=== PATIENT | female | born 1950 | race Caucasian/White ===

== ENCOUNTER → 2016-12-09 | Outpatient (CLI) | payer OTHER | LOC: FIMAGING 15:39 | PROVIDERS: ATTEND Family Medicine | DX: I51.7 Cardiomegaly (principal); E21.3 Hyperparathyroidism, unspecified ==

== ENCOUNTER → 2016-12-28 | Outpatient (CLI) | payer OTHER | LOC: CIMAGING 12:00 | DX: Z12.31 Encounter for screening mammogram for malignant neoplasm of breast (principal) | CPT/HCPCS: G0202 ==

== ENCOUNTER 2017-01-29 09:37 | Observation (INO) | payer OTHER ==
--- NOTE | 2017-01-29 09:47 | CPEKG ---
Heart Rate: 50 RR Interval: 1200 P-R Interval: 200 QRSD Interval: 106 QT Interval: 468 QTC Interval: 427 P Moffat: 27 QRS Moffat: 88 T Wave Moffat: -1 EKG Severity - OTHERWISE NORMAL ECG - EKG Impression: SINUS RHYTHM EKG Impression: MINIMAL ST DEPRESSION, INFERIOR LEADS Electronically Signed By: Miracle Wells 29-Jan-2017 15:27:48
[2017-01-29 10:22] LABS: % IMMATURE GRANULYOCYTES 0.6 % (0.0-1.1); ABSOLUTE IMMATURE GRANULOCYTES 0.03 10^3/uL (0.00-0.10); ADD DIFF? NO; ADD MORPH? NO; ADD SCAN? NO; ATYPICAL LYMPHOCYTE FLAG 20 (0-99); FRAGMENT RBC FLAG 0 (0-99); HEMATOCRIT 43.3 % (38.0-47.0); HEMOGLOBIN 14.7 g/dL (12.6-16.3); LEFT SHIFT FLG 0 (0-99); LIPEMIA HEMOLYSIS FLAG 90 (0-99); MEAN CELL HEMOGLOBIN 29.1 pg (27.9-34.1); MEAN CELL HEMOGLOBIN CONCENTR. 33.9 g/dL (32.4-36.7); MEAN CELL VOLUME 85.6 fL (81.5-99.8); PLATELET CLUMPS FLAG 0 (0-99); PLATELET COUNT 288 10^3/uL (150-400); RED BLOOD CELL COUNT 5.06 10^6/uL (4.18-5.33)
--- NOTE | 2017-01-29 10:34 | EDPHY ---
H & P Stated Complaint: Dizzy and syncope this am. Seen by PCP yesterday for same Time Seen by Provider: 01/29/17 10:07 HPI/ROS: CHIEF COMPLAINT: dizziness, near-syncope HISTORY OF PRESENT ILLNESS: 66-year-old female arrives via ambulance complaining of near syncopal episode and dizziness this morning. She describes several weeks of back pain which occurred intermittently, had an outpatient chest x-ray and an echocardiography performed [place] her yesterday showing mitral regurgitation. She received a phone call from her PCP last evening indicated that she necessitated transesophageal echocardiography and cardiac catheterizations. This morning while not performing exertional activity at home , standing, she felt sudden onset of dizziness, a "heartburn like sensation", fell to the floor. Did not have a syncopal episode the fell near syncopal. No incontinence. No head injury. 911 was subsequently called. PRIMARY CARE PROVIDER: Dr. Anum Olmstead REVIEW OF SYSTEMS: A ten point review of systems was performed and is negative with the exception of the items mentioned in the HPI PAST MEDICAL & SURGICAL HISTORY: no cardiac history SOCIAL HISTORY: nonsmoker. No drug use. FAMILY HISTORY:sister of [place] at age 40 PHYSICAL EXAM (Prior to examination, patient consented to physical exam, hands were washed and my usual and customary physical exam procedures followed) 1) GENERAL: Well-developed, well-nourished, alert and oriented. Appears to be in no acute distress. 2) HEAD: Normocephalic, atraumatic 3) HEENT: Pupils equal, round, reactive to light bilaterally. Sclera anicteric. 4) NECK: Full range of motion, no bruit. 5) LUNGS: Clear auscultation bilaterally, no wheezes, no rhonchi, no retractions. 6) HEART: Regular rate and rhythm, no murmur, no heave, no gallop. 7) ABDOMEN: No guarding, no rebound, no focal tenderness, negative McBurney's, negative Hernandez's, negative Rovsing's, negative peritoneal sign, 8) MUSCULOSKELETAL: Moving all extremities, no focal areas of tenderness, no obvious trauma. No peripheral edema or discoloration. 9) BACK: No CVA tenderness, no midline vertebral tenderness, no fluctuance, no step-off, no obvious trauma, no visual or palpable abnormality. 10) SKIN: No rash, no petechiae. 11) NEURO: Awake, alert, and oriented to person, place and time. Answers questions appropriately. There were no obvious focal neurologic abnormalities. No cerebellar dysfunction. Normal steady gait. Upper and lower extremities bilaterally with strength 5 / 5, reflexes 2+. DIFFERENTIAL DIAGNOSIS: In no particular order, including but not limited to myocardial ischemia, pulmonary embolus, chest wall pain, pleural inflammation and pulmonary infectious causes. - Personal History Current Tetanus/Diphtheria Vaccine: Yes - Medical/Surgical History Hx Asthma: No Hx Chronic Respiratory Disease: No Hx Diabetes: No Hx Cardiac Disease: No Hx Renal Disease: No Hx Cirrhosis: No Hx Alcoholism: No Hx HIV/AIDS: No Hx Splenectomy or Spleen Trauma: No Other PMH: foot surgery for arthritis - Social History Smoking Status: Former smoker Constitutional: Initial Vital Signs Temperature (C) 36.4 C 01/29/17 09:39 Heart Rate 58 L 01/29/17 09:39 Respiratory Rate 16 01/29/17 09:39 Blood Pressure 123/66 H 01/29/17 09:39 O2 Sat (%) 92 01/29/17 09:39 O2 Delivery Mode Room Air Allergies/Adverse Reactions: sulfamethoxazole [From Bactrim] Allergy (Verified 01/29/17 12:49) Other-Enter Comments trimethoprim [From Bactrim] Allergy (Verified 01/29/17 12:49) Other-Enter Comments Home Medications: Medication Instructions Recorded Betamethasone Jade 0.1% 1 nnamdi TP BID 01/29/17 [Betamethasone Jade 0.1% (*)] Cholecalciferol Vit D3 [Vitamin D3 1,000 units PO DAILY 01/29/17 (*)] Clindamycin Phosphate [Clindamycin 1 nnamdi TP BID 01/29/17 Top Solution] Herbals/Supplements -Info Only 1 ea PO DAILY 01/29/17 buPROPion XL [Wellbutrin Xl] 150 mg PO DAILY 01/29/17 Medical Decision Making - Diagnostics Imaging Results: Imaging Impressions Chest X-Ray 01/29/17 10:17 Impression: No acute abnormality, or substantial change from 12/09/2016. ED Course/Re-evaluation: 10:34 a.m.: Care and management in consultation with secondary supervising physician Dr Wells who independently evaluated patient. Medical records reviewed via [employer] including the echocardiography report. We recommended admission for further evaluation of her near syncope and mitral regurgitation findings. Doubt NE. Doubt PE. 11:24 a.m.: Phone consultation with hospitalist Silvia, admit to Dr. Cross PCU. Departure - Departure Disposition: [facility] Inpatient Acute Clinical Impression: Near syncope Mitral valve regurgitation Qualifiers: Cardiac valve disease etiology: etiology unspecified Qualified Code(s): I34.0 - Nonrheumatic mitral (valve) insufficiency Condition: Fair
[2017-01-29 10:37] LABS: ANION GAP 11 mEq/L (8-16); CALCIUM 10.8 mg/dL (8.5-10.4); CARBON DIOXIDE 23 mEq/l (22-31); CHLORIDE 106 mEq/L (97-110); CREATININE 0.8 mg/dL (0.6-1.0); GLOMERULAR FILTRATION RATE > 60; GLUCOSE 93 mg/dL (70-100); POTASSIUM 4.3 mEq/L (3.5-5.2); SODIUM 140 mEq/L (134-144)
[2017-01-29 10:48] LABS: INR 1.02 (0.83-1.16); PROTIME(PATIENT) 13.3 SEC (12.0-15.0); TROPONIN I < 0.012 ng/mL (0-0.034)
[2017-01-29 10:49] LABS: APTT 42.8 SEC (23.0-38.0)
[2017-01-29] MEDS ORDERED: ACETAMINOPHEN 325 MG TAB PO PRN (15:33)
[2017-01-29] MEDS ORDERED: PROMETHAZINE HCL 25 MG TAB PO PRN (15:33)
--- NOTE | 2017-01-29 15:41 | PDGENHP ---
History and Physical - Chief Complaint Acute near syncope - History of Present Illness PCP: Dr. Anum Olmstead HPI: 66-year-old female presenting with acute near syncope characterized as a dizziness with associated nausea and vomiting, onset of symptoms around 9:00 a.m. 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 Duration was several minutes, and the dizziness was exacerbated by attempting to stand, resulting in the patient following and reportedly nearly losing consciousness. Patient denies overt LOC, denies any incontinence, denies any chest pain or palpitations. She reports that she had otherwise been eating and drinking normally and she had been feeling well on the day prior to this presentation. She reports that her physical activity has been somewhat limited secondary to recent knee surgery and rehab, but she has been able to ambulate up stairs without any chest pain or significant reduction in respiratory capacity. History Information - Allergies/Home Medication List Allergies/Adverse Reactions: sulfamethoxazole [From Bactrim] Allergy (Verified 01/29/17 12:49) Other-Enter Comments trimethoprim [From Bactrim] Allergy (Verified 01/29/17 12:49) Other-Enter Comments Home Medications: Betamethasone Jade 0.1% [Betamethasone Jade 0.1% (*)] 1 nnamdi TP BID 01/29/17 [Last Taken 01/28/17] Cholecalciferol Vit D3 [Vitamin D3 (*)] 1,000 units PO DAILY 01/29/17 [Last Taken Unknown] Clindamycin Phosphate [Clindamycin Top Solution] 1 nnamdi TP BID 01/29/17 [Last Taken 01/28/17] Herbals/Supplements -Info Only 1 ea PO DAILY 01/29/17 [Last Taken Unknown] buPROPion XL [Wellbutrin Xl] 150 mg PO DAILY 01/29/17 [Last Taken 01/29/17] I have personally reviewed and updated: family history, medical history, social history, surgical history - Past Medical History Additional medical history: Parathyroid tumor, 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 Chronic dizziness for which she takes [id number] Antivert - Surgical History Additional surgical history: Recent knee surgery - Family History Additional family history: Sister with sudden cardiac at age 49, no family history of CVA - Social History Smoking Status: Former smoker Alcohol Use: Occasionally Drug Use: None Additional social history: Normally independent in her ADLs Review of Systems ROS: 10pt was reviewed & negative except for what was stated in HPI & below Constitutional: Denies: weakness Gastrointestinal: Reports: vomitting, nausea Neurological: Reports: other (Dizziness and near-syncope) Physical Exam Temp Pulse Resp BP Pulse Ox 36.9 C 57 L 16 117/58 L 94 01/29/17 12:22 01/29/17 12:22 01/29/17 12:22 01/29/17 12:22 01/29/17 12:22 O2 (L/minute) 2 Constitutional: no apparent distress, appears nourished, not in pain Eyes: PERRL, anicteric sclera, EOMI Ears, Nose, Mouth, Throat: moist mucous membranes, hearing normal, ears appear normal, no oral mucosal ulcers Cardiovascular: systolic murmur (3/6 systolic murmur at the apex with radiation into the axilla, 106 systolic murmur at the sternum), No irregularly irregular, No carotid bruit, No tachycardia, No edema Respiratory: no respiratory distress, no rales or rhonchi, clear to auscultation Gastrointestinal: normoactive bowel sounds, soft, non-tender abdomen, no palpable masses Skin: warm, normal color, no rashes or abrasions, no fluctuance, no induration, No mottled Neurologic: AAOx3, sensation intact bilaterally, CN II-XII Intact, No weakness Psychiatric: interacting appropriately, not anxious, not encephalopathic, thought process linear Lab Data & Imaging Review 01/29/17 Unknown 01/29/17 Unknown WBC 5.37 10^3/uL (3.80-9.50) 01/29/17 Unknown RBC 5.06 10^6/uL (4.18-5.33) 01/29/17 Unknown Hgb 14.7 g/dL (12.6-16.3) 01/29/17 Unknown Hct 43.3 % (38.0-47.0) 01/29/17 Unknown MCV 85.6 fL (81.5-99.8) 01/29/17 Unknown MCH 29.1 pg (27.9-34.1) 01/29/17 Unknown MCHC 33.9 g/dL (32.4-36.7) 01/29/17 Unknown RDW 13.0 % (11.5-15.2) 01/29/17 Unknown Plt Count 288 10^3/uL (150-400) 01/29/17 Unknown MPV 10.0 fL (8.7-11.7) 01/29/17 Unknown Neut % (Auto) 67.7 % (39.3-74.2) 01/29/17 Unknown Lymph % (Auto) 22.3 % (15.0-45.0) 01/29/17 Unknown Rains % (Auto) 6.7 % (4.5-13.0) 01/29/17 Unknown Eos % (Auto) 2.0 % (0.6-7.6) 01/29/17 Unknown Baso % (Auto) 0.7 % (0.3-1.7) 01/29/17 Unknown Nucleat RBC Rel Count 0.0 % (0.0-0.2) 01/29/17 Unknown Absolute Neuts (auto) 3.63 10^3/uL (1.70-6.50) 01/29/17 Unknown Absolute Lymphs (auto) 1.20 10^3/uL (1.00-3.00) 01/29/17 Unknown Absolute Monos (auto) 0.36 10^3/uL (0.30-0.80) 01/29/17 Unknown Absolute Eos (auto) 0.11 10^3/uL (0.03-0.40) 01/29/17 Unknown Absolute Basos (auto) 0.04 10^3/uL (0.02-0.10) 01/29/17 Unknown Absolute Nucleated RBC 0.00 10^3/uL (0-0.01) 01/29/17 Unknown Immature Gran % 0.6 % (0.0-1.1) 01/29/17 Unknown Immature Gran # 0.03 10^3/uL (0.00-0.10) 01/29/17 Unknown PT 13.3 SEC (12.0-15.0) 01/29/17 Unknown INR 1.02 (0.83-1.16) 01/29/17 Unknown APTT 42.8 SEC (23.0-38.0) H 01/29/17 Unknown D-Dimer < 0.27 ug/mLFEU (0.00-0.50) 01/29/17 Unknown Sodium 140 mEq/L (134-144) 01/29/17 Unknown Potassium 4.3 mEq/L (3.5-5.2) 01/29/17 Unknown Chloride 106 mEq/L (97-110) 01/29/17 Unknown Carbon Dioxide 23 mEq/l (22-31) 01/29/17 Unknown Anion Gap 11 mEq/L (8-16) 01/29/17 Unknown BUN 15 mg/dL (7-23) 01/29/17 Unknown Creatinine 0.8 mg/dL (0.6-1.0) 01/29/17 Unknown Estimated GFR > 60 01/29/17 Unknown Glucose 93 mg/dL (70-100) 01/29/17 Unknown Calcium 10.8 mg/dL (8.5-10.4) H 01/29/17 Unknown Phosphorus 3.5 mg/dL (2.5-4.5) 01/29/17 Unknown Troponin I < 0.012 ng/mL (0-0.034) 01/29/17 Unknown Visualized and Interpreted Chest x-ray results: Yes Chest X-Ray results: no infiltrate Visualized and Interpreted EKG results: Yes EKG Interpretation: Positive for: other (Inferior mild ST depressions) Assessment & Plan Assessment: 66-year-old female presents with acute near syncope in the setting of recently diagnosed mitral regurgitation Plan: 1. Near syncope. Acute, new problem this provider, further workup indicated. Potential etiologies include inner ear irritation, potentially a BPPV versus vertebrobasilar insufficiency versus cardiac arrhythmia versus cardiac valvular abnormality. -discussed with Katie Alexander, cardiology consult, Cardiology will consulted for further workup of valvular abnormality -get carotid/vertebral artery ultrasounds -monitor on telemetry -get orthostatic vital signs 2. Mitral regurgitation. Per report, significant on echocardiogram from 01/28, primary care provider contacted this patient and told her that a YOSELIN/right and left heart catheterization would be arranged via [facility] -order outside records including echocardiogram from [facility] 01/28 -will make NPO after midnight for probable yoselin most likely required to gauge flow gradient over mitral valve and determine whether patient should undergo surgery -patient does not appear overtly volume overloaded, seems to be asymptomatic, could be potentiating arrhythmia causing the above Diet. Regular, NPO after midnight Prophylaxis. Low risk patient, SCDs Code. Full Disposition. Anticipated discharge is 01/30/2017, pending further workup as outlined above.
[2017-01-29] MEDS ORDERED: NITROGLYCERIN 0.4 MG BTL SL PRN (20:19)
[2017-01-29] MEDS ORDERED: TEMAZEPAM 15 MG CAP PO PRN (20:19)
[2017-01-29] MEDS ORDERED: DIAZEPAM 5 MG TAB PO ONE (20:19)
[2017-01-29] MEDS ORDERED: ASPIRIN EC 325 MG TAB PO ONE (20:19)
--- NOTE | 2017-01-29 20:28 | PDCARCONS ---
Cardiology Consult Reason for Consult: Mitral regurgitation Chief Complaint: Dizzy with decreased exercise tolerance Requesting Physician: Tay History of Present Illness: 66 yo female, Hx. of heart murmur over many years s/p Echo yesterday revealing severe MR with a one day history of vertigo associated with nausea and vomiting. Her yunger sister recently had a CT and , Her grandmother simarily and she became very concerned it was going to happen to her. She activated 911. She did not have syncope. chest pain, PND, orthopnea. She has become more and more sedentary for no particular reason over the last several years. Ambulatory Orders Betamethasone Jade 0.1% [Betamethasone Jade 0.1% (*)] 1 nnamdi TP BID 01/29/17 Cholecalciferol Vit D3 [Vitamin D3 (*)] 1,000 units PO DAILY 01/29/17 Clindamycin Phosphate [Clindamycin Top Solution] 1 nnamdi TP BID 01/29/17 Herbals/Supplements -Info Only 1 ea PO DAILY 01/29/17 buPROPion XL [Wellbutrin 150mg XL] 150 mg PO DAILY 01/29/17 History Information - Allergies/Home Medication List Allergies/Adverse Reactions: sulfamethoxazole [From Bactrim] Allergy (Verified 01/29/17 12:49) Other-Enter Comments trimethoprim [From Bactrim] Allergy (Verified 01/29/17 12:49) Other-Enter Comments Home Medications: Betamethasone Jade 0.1% [Betamethasone Jade 0.1% (*)] 1 nnamdi TP BID 01/29/17 [Last Taken 01/28/17] Cholecalciferol Vit D3 [Vitamin D3 (*)] 1,000 units PO DAILY 01/29/17 [Last Taken Unknown] Clindamycin Phosphate [Clindamycin Top Solution] 1 nnamdi TP BID 01/29/17 [Last Taken 01/28/17] Herbals/Supplements -Info Only 1 ea PO DAILY 01/29/17 [Last Taken Unknown] buPROPion XL [Wellbutrin Xl] 150 mg PO DAILY 01/29/17 [Last Taken 01/29/17] I have personally reviewed and updated: family history, medical history, social history, surgical history - Surgical History Additional surgical history: Tonsillectomy - Family History Positive for: CAD, female first degree with premature CAD - Social History Smoking Status: Former smoker Alcohol Use: Occasionally Drug Use: None Cardiac History - Cardiac History Cardiac Risk Factors: family history of premature CAD Physical Exam Temp Pulse Resp BP Pulse Ox 36.9 C 68 16 96/50 L 91 L 01/29/17 19:40 01/29/17 19:40 01/29/17 19:40 01/29/17 19:40 01/29/17 19:40 O2 (L/minute) 2 Constitutional: No no apparent distress Eyes: PERRL, EOMI, No anicteric sclera, No icteric sclera Ears, Nose, Mouth, Throat: moist mucous membranes Cardiovascular: regular rate and rhythym, systolic murmur, No JVD, No edema Peripheral Pulses: 1+: carotid (R), carotid (L), femoral (R), femoral (L), dorsalis-pedis (R), dorsalis-pedis (L) Respiratory: no respiratory distress, no rales or rhonchi, clear to auscultation Gastrointestinal: normoactive bowel sounds, soft, non-tender abdomen, no palpable masses Genitourinary: no bladder fullness Skin: warm, normal color, no rashes or abrasions Musculoskeletal: full muscle strength Neurologic: AAOx3, No weakness Psychiatric: interacting appropriately, not anxious Lymph, Heme, Immunologic: no cervical LAD, no supraclavicular LAD Lab and Imaging 01/29/17 Unknown 01/29/17 Unknown WBC 5.37 10^3/uL (3.80-9.50) 01/29/17 Unknown RBC 5.06 10^6/uL (4.18-5.33) 01/29/17 Unknown Hgb 14.7 g/dL (12.6-16.3) 01/29/17 Unknown Hct 43.3 % (38.0-47.0) 01/29/17 Unknown MCV 85.6 fL (81.5-99.8) 01/29/17 Unknown MCH 29.1 pg (27.9-34.1) 01/29/17 Unknown MCHC 33.9 g/dL (32.4-36.7) 01/29/17 Unknown RDW 13.0 % (11.5-15.2) 01/29/17 Unknown Plt Count 288 10^3/uL (150-400) 01/29/17 Unknown MPV 10.0 fL (8.7-11.7) 01/29/17 Unknown Neut % (Auto) 67.7 % (39.3-74.2) 01/29/17 Unknown Lymph % (Auto) 22.3 % (15.0-45.0) 01/29/17 Unknown Ramsey % (Auto) 6.7 % (4.5-13.0) 01/29/17 Unknown Eos % (Auto) 2.0 % (0.6-7.6) 01/29/17 Unknown Baso % (Auto) 0.7 % (0.3-1.7) 01/29/17 Unknown Nucleat RBC Rel Count 0.0 % (0.0-0.2) 01/29/17 Unknown Absolute Neuts (auto) 3.63 10^3/uL (1.70-6.50) 01/29/17 Unknown Absolute Lymphs (auto) 1.20 10^3/uL (1.00-3.00) 01/29/17 Unknown Absolute Monos (auto) 0.36 10^3/uL (0.30-0.80) 01/29/17 Unknown Absolute Eos (auto) 0.11 10^3/uL (0.03-0.40) 01/29/17 Unknown Absolute Basos (auto) 0.04 10^3/uL (0.02-0.10) 01/29/17 Unknown Absolute Nucleated RBC 0.00 10^3/uL (0-0.01) 01/29/17 Unknown Immature Gran % 0.6 % (0.0-1.1) 01/29/17 Unknown Immature Gran # 0.03 10^3/uL (0.00-0.10) 01/29/17 Unknown PT 13.3 SEC (12.0-15.0) 01/29/17 Unknown INR 1.02 (0.83-1.16) 01/29/17 Unknown APTT 42.8 SEC (23.0-38.0) H 01/29/17 Unknown D-Dimer < 0.27 ug/mLFEU (0.00-0.50) 01/29/17 Unknown Sodium 140 mEq/L (134-144) 01/29/17 Unknown Potassium 4.3 mEq/L (3.5-5.2) 01/29/17 Unknown Chloride 106 mEq/L (97-110) 01/29/17 Unknown Carbon Dioxide 23 mEq/l (22-31) 01/29/17 Unknown Anion Gap 11 mEq/L (8-16) 01/29/17 Unknown BUN 15 mg/dL (7-23) 01/29/17 Unknown Creatinine 0.8 mg/dL (0.6-1.0) 01/29/17 Unknown Estimated GFR > 60 01/29/17 Unknown Glucose 93 mg/dL (70-100) 01/29/17 Unknown Calcium 10.8 mg/dL (8.5-10.4) H 01/29/17 Unknown Phosphorus 3.5 mg/dL (2.5-4.5) 01/29/17 Unknown Troponin I < 0.012 ng/mL (0-0.034) 01/29/17 Unknown Visualized and Interpreted Chest x-ray results: Yes Chest X-ray Interpretation: other (No cardiomegaly. Normal) EKG additional interpertation: SR with inferior non specific ST-T changes. A/P Assessment: 1. Acute vertigo associated with nausea and vomiting 2. Severe mitral regurgitation without clear evidence f heart failure, but, slow and steady decline in functional activities. 3. Strong family history of early coronary artery disease with recent loss of sister and abnormal baseline ecg with inferior st-t changes and normal troponin. Plan: 1. Metabolic assment for CHF wth BNP 2. SAADIA right and left heart cath to determine surgical approach needed. Discussed timing of these tests and alternatives including watchful waiting. She understands the risks and benefits. Will proceed tomorrow. am. Review of Systems - Review of Systems Constitutional: denies: chills, fever EENTM: other (vertigo) Respiratory: no symptoms reported Cardiac: no symptoms reported Gastrointestinal/Abdominal: nausea, vomiting. denies: diarrhea Genitourinary: no symptoms Musculoskelatal: no symptoms Skin: no symptoms Neurological: dizziness Hematologic/Lymphatic: no symptoms reported Immunologic/allergic: denies: no symptoms reported
[2017-01-29] MEDS ORDERED: BETAMETHASONE VAL 0.1% 15 GM CREAM TP SCH (21:00)
[2017-01-29] MEDS ORDERED: CLINDAMYCIN 1% 60 ML LOTION TP SCH (21:00)
[2017-01-30] MEDS ORDERED: KETOROLAC 30 MG/1 ML SDV IVP PRN (03:28)
[2017-01-30 04:43] LABS: % IMMATURE GRANULYOCYTES 0.5 % (0.0-1.1); ABSOLUTE IMMATURE GRANULOCYTES 0.03 10^3/uL (0.00-0.10); ADD DIFF? NO; ADD MORPH? NO; ADD SCAN? NO; ATYPICAL LYMPHOCYTE FLAG 10 (0-99); FRAGMENT RBC FLAG 0 (0-99); HEMATOCRIT 42.6 % (38.0-47.0); HEMOGLOBIN 14.2 g/dL (12.6-16.3); LEFT SHIFT FLG 0 (0-99); LIPEMIA HEMOLYSIS FLAG 80 (0-99); MEAN CELL HEMOGLOBIN 29.2 pg (27.9-34.1); MEAN CELL HEMOGLOBIN CONCENTR. 33.3 g/dL (32.4-36.7); MEAN CELL VOLUME 87.7 fL (81.5-99.8); MEAN PLATELET VOLUME 9.6 fL (8.7-11.7); PLATELET CLUMPS FLAG 10 (0-99); PLATELET COUNT 258 10^3/uL (150-400); RED BLOOD CELL COUNT 4.86 10^6/uL (4.18-5.33)
[2017-01-30 04:47] LABS: ALANINE AMINOTRANSFERASE 46 IU/L (9-52); ALBUMIN 4.1 g/dL (3.5-5.0); ALKALINE PHOSPHATASE 85 IU/L (38-126); ANION GAP 8 mEq/L (8-16); ASPARTATE AMINOTRANSFERASE 28 IU/L (14-46); BILIRUBIN,TOTAL 0.8 mg/dL (0.1-1.4); CALCIUM 10.3 mg/dL (8.5-10.4); CARBON DIOXIDE 24 mEq/l (22-31); CHLORIDE 107 mEq/L (97-110); CREATININE 0.8 mg/dL (0.6-1.0); GLOMERULAR FILTRATION RATE > 60; GLUCOSE 110 mg/dL (70-100); MAGNESIUM 2.3 mg/dL (1.6-2.3); POTASSIUM 4.3 mEq/L (3.5-5.2); SODIUM 139 mEq/L (134-144); TOTAL PROTEIN 6.1 g/dL (6.3-8.2)
[2017-01-30 04:57] LABS: INR 1.05 (0.83-1.16); PROTIME(PATIENT) 13.6 SEC (12.0-15.0)
[2017-01-30 04:58] LABS: APTT 51.4 SEC (23.0-38.0)
[2017-01-30] MEDS ORDERED: DIAZEPAM 5 MG TAB PO ONE (05:00)
[2017-01-30] MEDS ORDERED: ASPIRIN EC 325 MG TAB PO ONE (05:00)
[2017-01-30] MEDS ORDERED: ASPIRIN 325 MG TAB ONE (07:59)
[2017-01-30] MEDS ORDERED: DIAZEPAM 5 MG TAB ONE (07:59)
[2017-01-30] MEDS ORDERED: LIDOCAINE 1% 30 ML SDV ONE (08:18)
[2017-01-30] MEDS ORDERED: HEPARIN 10,000 UNIT/10 ML MDV ONE (08:19)
[2017-01-30] MEDS ORDERED: fentaNYL 100 MCG/2 ML INJ ONE ×2 (08:19→09:25)
[2017-01-30] MEDS ORDERED: MIDAZOLAM 2 MG/2 ML VIAL ONE ×2 (08:19→09:25)
[2017-01-30] MEDS ORDERED: IOPAMIDOL (ISOVUE-370) 150 ML BTL IV ONE ×2 (08:20)
[2017-01-30] MEDS ORDERED: VERAPAMIL 5 MG/2 ML VIAL ONE (08:20)
[2017-01-30] MEDS ORDERED: buPROPion XL 150 MG TAB PO SCH (09:00)
[2017-01-30] MEDS ORDERED: CHOLECALCIFEROL VIT D3 1,000 UNITS TAB PO SCH (09:00)
[2017-01-30] MEDS ORDERED: Herbals/Supplements -Info Only PO SCH (09:00)
[2017-01-30] MEDS ORDERED: ONDANSETRON 4 MG/2 ML VIAL IVP PRN (10:26)
[2017-01-30] MEDS ORDERED: ATROPINE SULFATE 1 MG/10 ML SYR IVP PRN (10:26)
--- NOTE | 2017-01-30 10:30 | PDDXCAT ---
Diagnostic Cath Note - . Date: 01/30/17 Cushion Assembler: Quinten Indication: other (Class 1 dyspnea on exertion, severe mitral regurgitation) - Procedure Access: right groin Procedure: left heart catheterization, coronary angiography, left ventriculogram , right heart catheterization - Materials Left Heart Cath size: 5F Left Heart Cath materials: standard multipack (JL4, JR4, pigtail) Right Heart Cath size: 7F Right Heart Cath materials: PWP catheter - Findings-Left Heart Catheterization LM: Normal LAD: Normal LCX: Co dominant: Normal RCA: Co dominant: Normal EDP: 15 mm of mercury LVEF: 65% with 3+ mitral regurgitation Wall motion: Normal - Findings-Right Heart Catheterization RA: 10 mm of mercury RV: 42/11 mm of mercury PA: 45/18 mm of mercury PAOP: 15 mm of mercury Complications: None Estimated blood loss: <50ml Closure method: Angioseal Assessment: 1. Angiographically normal coronary arteries. 2. Normal left ventricular systolic function with 3+ mitral regurgitation. 3. Borderline pulmonary artery pressures. Plan: Evaluation for mitral valve repair. Patient Problems: Problems Problem Status Onset Near syncope Acute Mitral valve regurgitation Acute
--- NOTE | 2017-01-30 10:33 | SOAPPROG ---
SOAP Progress Note Assessment/Plan: Assessment: 1. Severe mitral regurgitation. 2. Borderline pulmonary artery pressure secondary to #1. 3. Vertigo Procedure today: Cardiac catheterization with SAADIA revealing normal coronary arteries, normal LV function with severe mitral regurgitation and posterior prolapse. Elevated pulmonary artery pressure at 45 mmhg systolic. Impression: Severe mitral regurgitation with posterior leaflet prolapse and now borderline pulmonary artery pressures at rest. Plan: Plan for cardiothoracic surgery consultation for mitral valve repair. This can be done as an outpatient. 01/30/17 10:30 Subjective: Feeling well, no further dizziness. No chest pain, shortness of breath, PND, orthopnea. Objective: Laboratory Tests 01/30/17 04:25 NT-Pro-B Natriuret Pep 141 H Vital Signs Temp Pulse Resp BP Pulse Ox 36.9 C 53 L 16 109/67 100 01/30/17 07:17 01/30/17 07:17 01/30/17 07:17 01/30/17 07:17 01/30/17 07:17 Laboratory Results 01/30/17 04:25 01/30/17 04:25 01/29/17 01/30/17 01/31/17 05:59 05:59 05:59 Intake Total 1200 Balance 1200 PT 13.6 SEC (12.0-15.0) 01/30/17 04:25 INR 1.05 (0.83-1.16) 01/30/17 04:25 Physical Exam - Physical Exam General Appearance: alert, no apparent distress Neck: non-tender, full range of motion Respiratory: chest non-tender, lungs clear Cardiac/Chest: normal peripheral pulses, regular rate, rhythm, systolic murmur, No edema, No gallop, No JVD Abdomen: normal bowel sounds, non-tender Skin: normal color, warm/dry Lymphatic: no adenopathy Extremities: No pedal edema ICD10 Worksheet Patient Problems: Problems Problem Status Onset Mitral valve regurgitation Acute Near syncope Acute Review of Systems - Review of Systems Constitutional: denies: chills, fever EENTM: no symptoms reported Respiratory: no symptoms reported Cardiac: no symptoms reported Gastrointestinal/Abdominal: no symptoms reported Genitourinary: no symptoms Musculoskelatal: no symptoms Skin: no symptoms Neurological: no symptoms Hematologic/Lymphatic: no symptoms reported
[2017-01-30 11:39] VITALS: RESP 14
[2017-01-30 11:56] VITALS: TEMP 97.7
[2017-01-30 13:02] VITALS: O2SAT 92
[2017-01-30 14:13] VITALS: BP 94/56; PULSE 64
--- NOTE | 2017-01-30 20:33 | GDS ---
[f rep st] DISCHARGE SUMMARY DISCHARGE DIAGNOSES: 1. Acute vertigo with nausea and vomiting, resolved. 2. Severe mitral regurgitation. CONSULTANTS: Dr. Alexis Shipley, Cardiology. IMAGING/PROCEDURES: 1. Chest x-ray, January 29, showed no acute cardiopulmonary abnormality. 2. Carotid artery Doppler study, January 29, showed no evidence of flow-limiting carotid stenosis. No c arotid atherosclerotic disease, with bilateral patent vertebral arteries with antegrade flow. 3. Left and right heart catheterization with coronary angiogram, January 30, for evaluation for mitral v alve repair showed angiographically normal coronary arteries, normal left ventricular systolic funct ion with 3+ mitral regurgitation, and borderline pulmonary artery pressures. 4. History for details please see dictated history and physical dated January 29, 2017. In brief, the patient is a 66-year-old female with a history of chronic dizziness, who presents to [facility] Emergency Department with acute vertigo, nausea, and vomiting. She was admitted to the hospital for further evaluation. HOSPITAL COURSE: The patient was admitted to the Progressive Care Unit and monitored on telemetry. There was no evidence of cardiac arrhythmia. Potential etiologies of her vertigo, nausea, and vomi ting include possibly BPPV versus viral labyrinthitis versus an atypical symptomatology of her valve disease versus vertebrobasilar insufficiency. Her symptoms completely resolved and have not persis leonarda on the day of discharge. The fact that she is normotensive and her symptoms have resolved make a brain stem stroke unlikely. She is provided with a prescription for meclizine and Zofran at [facility], and she might also follow up with a vestibular therapist for possible maneuver to treat BPPV. Regarding her severe mitral regurgitation, she had plans for SAADIA and right and left heart catheteriz ation as an outpatient. She underwent angiogram as above to rule out a cardiac etiology of her symp toms, also in preparation for valve surgery. She had no evidence of heart failure. The results of her angiogram were described above. She is referred to Dr. Nehemiah Siddiqui for an outpatient cardiothor acic surgery consultation, and is advised to return the hospital should her symptoms become more sev ere. DISPOSITION: The patient is discharged home in stable condition. FOLLOWUP: 1. Dr. Nehemiah Siddiqui 7-10 days to discuss valve surgery. 2. Primary care physician. DISCHARGE MEDICATIONS: Meclizine 25 mg p.o. q.6 hours p.r.n., #30, no refills. Zofran 4 mg p.o. q. 6 hours p.r.n., #30, no refills. /[id number]/MODL
== END 2017-01-30 16:28 | disposition home or self-care (01) ==
LOC: EDUNIT# → F2W 12:04
PROVIDERS: ADMIT Internal Medicine; ATTEND Hospitalist
DX: I34.0 Nonrheumatic mitral (valve) insufficiency (principal); R55 Syncope and collapse; R11.2 Nausea with vomiting, unspecified; Z82.49 Family history of ischemic heart disease and other diseases of the circulatory system
CPT/HCPCS: 93005; 93312; 93460; 93880; G0378; C1760; J1200; J1644; J1885; J2250; J3010; Q9967

== ENCOUNTER 2017-02-17 05:38 | Inpatient (IN) | payer OTHER ==
[2017-02-17] MEDS ORDERED: CHLORHEXIDINE GLUC HIBICLENS 118 ML BTL TP SCH (06:00)
[2017-02-17] MEDS ORDERED: NS 1,000 ML IV ONE (06:00)
[2017-02-17] MEDS ORDERED: ceFAZolin 2 GM/DEXTROSE 100 ML IV ONE (06:00)
[2017-02-17] MEDS ORDERED: MANNITOL 25% 12.5 GM/50 ML VIAL IV ONE (06:00)
[2017-02-17] MEDS ORDERED: NOREPINEPHRINE BITARTRATE 16 MG in NS 250 ML IV ONE (06:00)
[2017-02-17] MEDS ORDERED: niCARdipine/NACL 200 ML IV SCH (06:00)
[2017-02-17] MEDS ORDERED: SODIUM BICARBONATE 20 MEQ, LIDOCAINE 1% 10 ML in NORMOSOL-R 1,000 ML MISC ONE (06:00)
[2017-02-17] MEDS ORDERED: MUPIROCIN 2% 22 GM OINT NS ONE (06:00)
[2017-02-17] MEDS ORDERED: INSULIN REGULAR HUMAN 100 UNIT in NS 100 ML IV ONE (06:00)
[2017-02-17] MEDS ORDERED: CITRATE DEXTROSE SOLN 500 ML BAG MISC ONE (06:00)
[2017-02-17] MEDS ORDERED: PHENYLEPHRINE HCL 50 MG in NS 250 ML IV ONE (06:00)
[2017-02-17] MEDS ORDERED: AMINOCAPROIC ACID 5 GM/20 ML VIAL IV ONE (06:00)
[2017-02-17] MEDS ORDERED: LIDOCAINE 1% 2 ML INJ ONE (06:20)
[2017-02-17] MEDS ORDERED: PROTAMINE SULFATE 50 MG/5 ML VIAL IVP ONE (06:48)
[2017-02-17] MEDS ORDERED: MILRINONE/DEXTROSE/100 ML BAG IV ONE (06:48)
[2017-02-17] MEDS ORDERED: POTASSIUM Cl (KCl) 20 MEQ/50 ML BAG IV ONE (06:48)
[2017-02-17] MEDS ORDERED: LIDOCAINE 2% 100 MG/5 ML SYR ONE (06:48)
[2017-02-17] MEDS ORDERED: CALCIUM CHLORIDE 1 GM/10 ML INJ ONE (06:48)
[2017-02-17] MEDS ORDERED: AMINOCAPROIC ACID 5 GM/20 ML VIAL ONE (06:48)
[2017-02-17] MEDS ORDERED: NA BICARBONATE 50 MEQ/50 ML VIAL ONE (06:48)
[2017-02-17] MEDS ORDERED: ALBUMIN 5% 250 ML BOTTLE IV ONE (06:48)
[2017-02-17] MEDS ORDERED: HEPARIN 10,000 UNIT/10 ML MDV ONE (06:49)
[2017-02-17] MEDS ORDERED: ceFAZolin 1 GM VIAL ONE (06:49)
[2017-02-17] MEDS ORDERED: DOPamine/DEXTROSE/250 ML BAG IV ONE (06:49)
[2017-02-17] MEDS ORDERED: ADENOSINE 6 MG/2 ML VIAL ONE (06:49)
[2017-02-17] MEDS ORDERED: MAGNESIUM SULFATE 1 GM/2 ML VIAL ONE (06:49)
[2017-02-17] MEDS ORDERED: methylPREDNISolone SOD SUCC 1 GM/8 ML VIAL ONE (06:49)
[2017-02-17] MEDS ORDERED: AMIODARONE HCL 150 MG/3 ML VIAL ONE (06:49)
[2017-02-17] MEDS ORDERED: CITRATE DEXTROSE SOLN 500 ML BAG ONE (06:49)
[2017-02-17] MEDS ORDERED: niCARdipine/NACL/200 ML BAG IV ONE (06:49)
[2017-02-17] MEDS ORDERED: LR 1,000 ML IV ONE (06:53)
[2017-02-17] MEDS ORDERED: LIDOCAINE 1% 5 ML SDV ID PRN (06:53)
[2017-02-17] MEDS ORDERED: SCOPOLAMINE HYDROBROMIDE 1.5 MG PATCH TD ONE ×2 (07:03→07:30)
[2017-02-17] MEDS ORDERED: REMIFENTANIL HCL 1 MG VIAL ONE (07:08)
[2017-02-17] MEDS ORDERED: fentaNYL 100 MCG/2 ML INJ ONE ×3 (07:08→10:53)
[2017-02-17] MEDS ORDERED: PROPOFOL/EMULSION 500 MG/50 ML BOTTLE IV ONE (07:09)
[2017-02-17] MEDS ORDERED: ROCURONIUM 100 MG/10 ML VIAL ONE (07:10)
[2017-02-17] MEDS ORDERED: MIDAZOLAM 2 MG/2 ML VIAL ONE (07:11)
[2017-02-17] MEDS ORDERED: DEXMEDETOMIDINE HCL 400 MCG in NS 100 ML IV ONE (07:30)
[2017-02-17] MEDS ORDERED: HYDROmorphONE/DILAUDID 2 MG/ML INJ ONE (09:38)
[2017-02-17] MEDS ORDERED: MINERAL OIL 10 ML VIAL ONE (10:04)
[2017-02-17] MEDS ORDERED: BISACODYL 10 MG SUPP PR PRN (11:04)
[2017-02-17] MEDS ORDERED: D50W 25 GM/50 ML SYR IVP PRN (11:04)
[2017-02-17] MEDS ORDERED: SODIUM CL NASAL 45 ML BTL EACHNARE PRN (11:04)
[2017-02-17] MEDS ORDERED: POLYETHYLENE GLYCOL 3350 17 GM PKT PO PRN (11:04)
[2017-02-17] MEDS ORDERED: ONDANSETRON DISINTEGRATING 4 MG TAB PO PRN (11:04)
[2017-02-17] MEDS ORDERED: ONDANSETRON 4 MG/2 ML VIAL IVP PRN (11:04)
[2017-02-17] MEDS ORDERED: MAGNESIUM HYDROXIDE 30 ML UDCUP PO PRN (11:04)
[2017-02-17] MEDS ORDERED: POTASSIUM Cl (KCl) 50 ML IV PRN (11:04)
[2017-02-17] MEDS ORDERED: MAGNESIUM SULF 2 GM/WATER 50 ML IV ONE (11:04)
[2017-02-17] MEDS ORDERED: CEPACOL LOZENGE PO PRN (11:04)
[2017-02-17] MEDS ORDERED: AMIODARONE HCL 200 ML IV ONE (11:04)
[2017-02-17] MEDS ORDERED: ACETAMINOPHEN 650 MG SUPP PR PRN (11:04)
[2017-02-17] MEDS ORDERED: LACTULOSE 20 GM/30 ML UDCUP PO PRN (11:04)
[2017-02-17] MEDS ORDERED: MEPERIDINE 25 MG/ML SYR IVP PRN (11:04)
[2017-02-17] MEDS ORDERED: PANTOPRAZOLE SODIUM 40 MG in NS 100 ML IV ONE (11:04)
[2017-02-17] MEDS ORDERED: ALBUMIN 5% 250 ML IV PRN (11:04)
[2017-02-17] MEDS ORDERED: ACETAMINOPHEN 325 MG TAB PO PRN (11:04)
[2017-02-17] MEDS ORDERED: NS 1,000 ML IV SCH (11:15)
[2017-02-17] MEDS ORDERED: AMIODARONE HCL 200 ML IV SCH ×2 (11:30→18:00)
[2017-02-17] MEDS ORDERED: INSULIN REGULAR HUMAN 100 UNIT in NS 100 ML IV SCH (11:30)
[2017-02-17] MEDS ORDERED: SODIUM BICARBONATE 50 MEQ/50 ML SYR ONE (11:46)
[2017-02-17 11:48] LABS: CALCULATED OXYGEN SATURATION 93 % (92-95); O2 CONCENTRATIION 10 % (0-100)
[2017-02-17 11:50] LABS: BICARBONATE 19 mEq/L (22-26); MEASURED OXYGEN SATURATION 95 % (92-95); PCO2 45 mmHg (34-38); PO2 89 mmHg (65-75); TCO2 21 mEq/L (23-27)
[2017-02-17 11:53] LABS: CALCULATED OXYGEN SATURATION 94 % (92-95); O2 CONCENTRATIION 10 % (0-100)
[2017-02-17] MEDS: KETOROLAC 15 MG/1 ML SDV IVP SCH ×2 (12:29→19:09)
[2017-02-17] MEDS ORDERED: SODIUM BICARBONATE 50 MEQ/50 ML SYR IVP ONE (13:45)
[2017-02-17] MEDS: ceFAZolin 2 GM/DEXTROSE 100 ML IV SCH ×2 (13:51→22:03)
[2017-02-17] MEDS ORDERED: ALBUMIN 5% 500 ML IV ONE (14:00)
[2017-02-17 14:36] LABS: HEMATOCRIT 29.7 % (38.0-47.0); HEMOGLOBIN 10.2 g/dL (12.6-16.3); MEAN CELL HEMOGLOBIN 29.7 pg (27.9-34.1); MEAN CELL HEMOGLOBIN CONCENTR. 34.3 g/dL (32.4-36.7); MEAN CELL VOLUME 86.6 fL (81.5-99.8); RED BLOOD CELL COUNT 3.43 10^6/uL (4.18-5.33); RED CELL DISTRIBUTION WIDTH 13.1 % (11.5-15.2)
[2017-02-17] MEDS ORDERED: LIDOCAINE 1% 300 MG/30 ML SDV ONE (15:35)
--- NOTE | 2017-02-17 16:08 | GOP ---
[f rep st] OPERATIVE REPORT DATE OF OPERATION: 02/17/2017 SURGEON: Nehemiah Siddiqui DO LEARNING SERVICES COORDINATOR: Chuy. ANESTHESIOLOGIST: Giovanna Mayen MD. PREOPERATIVE DIAGNOSIS: Severe mitral insufficiency. POSTOPERATIVE DIAGNOSIS: Severe mitral insufficiency with significant obesity. PROCEDURE PERFORMED: Mitral valve replacement with a #29 Magna bioprosthesis with chordal sparing AtriClip to the left atrial appendage. FINDINGS: DESCRIPTION OF PROCEDURE: Patient was brought to the operating room, intubated, monitoring lines we re placed. She was prepped and draped in sterile classical manner. A transesophageal echo confirme d severe mitral insufficiency with bileaflet prolapse and what appeared to be fixation of P1. She a lso had marked chordal sandwich which was more pronounced than her preoperative echo. For that reas on, I felt that a minimally invasive mitral valve repair would be rather complex and difficult and w ould make it more difficult to do a septal myectomy. I discussed it with the patient and the family preoperatively, and we decided to proceed with sternotomy which was performed. She was heparinized and cannulated in the standard fashion. The aorta was without thickening or calcification. The he art was somewhat enlarged. All 4 chambers and SAADIA as previously reviewed was noted. After cannulat ion, cardiopulmonary bypass was begun. Cardioplegic arrest was obtained with antegrade cardioplegia . Retrograde cardioplegia, topical hypothermia and systemic cooling. Initially, the left atrial ap pendage was clipped with an AtriClip with complete occlusion avoiding the circumflex vessel and paulette ining flush with the left atrial wall. We then proceeded with exposing the mitral valve through the right superior pulmonary vein. A retractor was placed. The valve was inspected. The anterior robbin flet was markedly thickened and somewhat calcified on the leading edge as well as along the anulus. The posterior leaflet was ruptured in P2 and P3. The anterior leaflet was elongated in A2 and A3, and P1 was fixed to the myocardial wall with a marked calcification of chordal and papillary structu res. Because of the findings, I felt that mitral valve replacement would be more appropriate and of better long-term duration. For that reason, the anterior leaflet was detached, divided in half and incorporated into interrupted 2-0 Tycron pledgeted mattress sutures through a 29 mm valve. This wa s secured in place without difficulty. The atrial appendage was flushed from the inside. Left atri um was closed in a standard fashion. CO2 had been infused throughout the procedure. The cross-clam p was removed with the patient in deep Trendelenburg with intermittent aspiration through the apex i n the aortic vent until no further air was identified. She was easily weaned from bypass. The hepa rin was reversed with protamine. The cannula was removed and oversewn. Two ventricular pacing wire s were placed. The thymic fat and pericardium were closed. The chest was closed in standard fashio n. Patient was returned to ICU in stable condition. /[id number]/MODL
[2017-02-17] MEDS ORDERED: NOREPINEPHRINE BITARTRATE 16 MG in NS 250 ML IV SCH (17:00)
[2017-02-17 19:29] LABS: CALCULATED OXYGEN SATURATION 98 % (92-95)
[2017-02-17] MEDS: METOCLOPRAMIDE 10 MG/2 ML VIAL IVP PRN (19:58)
[2017-02-17] MEDS: MUPIROCIN 2% 22 GM OINT NS SCH (21:12)
[2017-02-17] MEDS: CLINDAMYCIN TP SCH (21:12)
[2017-02-17] MEDS: SENNOSIDES/DOCUSATE SODIUM TAB PO SCH (21:13)
[2017-02-17 21:50] LABS: BASE EXCESS -2.9 mEq/L (-2.5-2.5); BICARBONATE 21 mEq/L (22-26); MEASURED OXYGEN SATURATION 97 % (92-95); PCO2 35 mmHg (34-38); PO2 96 mmHg (65-75); TCO2 22 mEq/L (23-27)
[2017-02-17] MEDS: fentaNYL 100 MCG/2 ML INJ IVP PRN (23:33)
[2017-02-18] MEDS: KETOROLAC 15 MG/1 ML SDV IVP SCH ×4 (00:35→17:25)
[2017-02-18] MEDS: fentaNYL 100 MCG/2 ML INJ IVP PRN ×3 (03:43→07:51)
[2017-02-18 04:27] LABS: INR 1.17 (0.83-1.16); PROTIME(PATIENT) 14.9 SEC (12.0-15.0)
[2017-02-18 04:49] LABS: % IMMATURE GRANULYOCYTES 0.6 % (0.0-1.1); ADD DIFF? NO; ADD MORPH? NO; ADD SCAN? NO; ATYPICAL LYMPHOCYTE FLAG 0 (0-99); FRAGMENT RBC FLAG 0 (0-99); HEMATOCRIT 29.3 % (38.0-47.0); HEMOGLOBIN 9.8 g/dL (12.6-16.3); LEFT SHIFT FLG 10 (0-99); LIPEMIA HEMOLYSIS FLAG 80 (0-99); MEAN CELL HEMOGLOBIN 29.8 pg (27.9-34.1); MEAN CELL HEMOGLOBIN CONCENTR. 33.4 g/dL (32.4-36.7); MEAN CELL VOLUME 89.1 fL (81.5-99.8); MEAN PLATELET VOLUME 10.3 fL (8.7-11.7); PLATELET CLUMPS FLAG 0 (0-99); PLATELET COUNT 146 10^3/uL (150-400); RED BLOOD CELL COUNT 3.29 10^6/uL (4.18-5.33); RED CELL DISTRIBUTION WIDTH 13.4 % (11.5-15.2)
[2017-02-18 05:04] LABS: ANION GAP 7 mEq/L (8-16); CALCIUM 9.3 mg/dL (8.5-10.4); CARBON DIOXIDE 23 mEq/l (22-31); CHLORIDE 112 mEq/L (97-110); CREATININE 0.6 mg/dL (0.6-1.0); GLOMERULAR FILTRATION RATE > 60; GLUCOSE 104 mg/dL (70-100); POTASSIUM 4.5 mEq/L (3.5-5.2); SODIUM 142 mEq/L (134-144)
[2017-02-18] MEDS: ceFAZolin 2 GM/DEXTROSE 100 ML IV SCH ×3 (06:06→21:40)
[2017-02-18] MEDS: HEPARIN 5,000 UNIT/0.5 ML SYR SC SCH ×3 (06:06→21:40)
[2017-02-18 07:41] LABS: POTASSIUM 4.5 mEq/L (3.5-5.2)
[2017-02-18] MEDS: MUPIROCIN 2% 22 GM OINT NS SCH (07:52)
--- NOTE | 2017-02-18 08:01 | SOAPPROG ---
SOAP Progress Note Assessment/Plan: Assessment: POD#1 MVR#29 Dickey Magna bovine pericardial bioprosthesis, AtriClip ligation left atrial appendage Sx severe MR - Bileaflet involvement not amenable to repair and replaced with tissue valve. Extubated in the OR. Moderate volume overload. Antithrombotic prophylaxis with Coumadin x 3 months. Target INR 2-3, pending stability of rhythm. Rhythm - SB/JR early postop. Assoc with hypotension responsive to low dose levo. TCPWs with high thresholds and temp pacing cath placed by EP. Acute expected blood loss anemia - Stable. No blood products transfused. No evidence active bleeding. Plan: Routine POD#1 orders re drains and orals. Pacing cath per EP cards. Mobility clearance per EP cards. Wean levo to MAP > 70. Lasix 20mg IV x 1. D/C brown once able to get OOB. Start coumadin. 5 mg today. Keep in ICU while pacer dependent. 02/18/17 07:58 Subjective: Comfortable. Thirsty. Feels a little puffy. Objective: Vital Signs Temp Pulse Resp BP Pulse Ox 37.8 C 80 20 107/57 L 100 02/18/17 07:00 02/18/17 07:00 02/18/17 07:00 02/18/17 07:00 02/18/17 07:00 Laboratory Results 02/18/17 04:05 02/18/17 07:23 02/17/17 02/18/17 02/19/17 05:59 05:59 05:59 Intake Total 2024.6 Output Total 1365 Balance 659.6 PT 14.9 SEC (12.0-15.0) 02/18/17 04:05 INR 1.17 (0.83-1.16) H 02/18/17 04:05 VVI paced at 80. Underlying SB 40s. MAPs > 70 on 2mcg levo. Minimal suppl O2 req. Minimal CTOP. CXR -> small left pleural effusion, mild pulm vasc congestion, no PTX. Positive fluid balance. +7kg overall. Labs ok. Physical Exam - Physical Exam General Appearance: alert, no apparent distress Neck: other (RIJ pacing cath) Respiratory: lungs clear (grossly), other (blakes x 2 y-d to pleurovac, serosang drainage, no tidal, no air leak) Cardiac/Chest: regular rate, rhythm, other (Vwires intact) Abdomen: normal bowel sounds, non-tender, soft Skin: warm/dry Extremities: swelling (1+ gen) ICD10 Worksheet Patient Problems: Problems Problem Status Onset Acute blood loss anemia Acute S/P mitral valve replacement with bioprosthetic valve Acute Mitral valve regurgitation Acute Near syncope Acute
[2017-02-18] MEDS: BETAMETHASONE VAL 0.1% 15 GM CREAM TP SCH ×2 (08:03→21:41)
[2017-02-18] MEDS ORDERED: FUROSEMIDE 20 MG/2 ML VIAL IVP ONE (09:00)
[2017-02-18] MEDS ORDERED: CLINDAMYCIN PHOSPHATE TP SCH (09:00)
[2017-02-18] MEDS: SENNOSIDES/DOCUSATE SODIUM TAB PO SCH ×2 (09:03→21:40)
[2017-02-18] MEDS: HYDROCODONE/APAP 5/325 TAB PO PRN ×3 (09:03→20:36)
[2017-02-18] MEDS: CLINDAMYCIN TP SCH ×2 (09:03→21:42)
[2017-02-18] MEDS: buPROPion XL 150 MG TAB PO SCH (09:03)
[2017-02-18] MEDS: traMADol 50 MG TAB PO PRN (10:50)
[2017-02-18] MEDS: ASPIRIN 81 MG CHEWABLE TAB PO SCH (10:51)
[2017-02-18] MEDS: PANTOPRAZOLE SODIUM 40 MG TAB PO SCH (10:51)
[2017-02-18] MEDS ORDERED: ASPIRIN 81 MG CHEWABLE TAB TUBE PRN (11:04)
[2017-02-18 13:25] LABS: POTASSIUM 4.1 mEq/L (3.5-5.2)
--- NOTE | 2017-02-18 15:14 | PDINTPN ---
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 [place] rhythm SB in 40s. Anemia: H/H low but stable. No signs active bleeding. Hyperglycemia: Improved. Pulmonary HTN: Mild. Plan: Follow H/H, blood sugars. Outpatient ECHO for follow-up of pulmonary HTN. 02/18/17 15:11 02/18/17 15:12 Subjective: Pain controlled. Still feels weak. Only able to eat a few bites before feeling full. Objective: Vital Signs Temp Pulse Resp BP Pulse Ox 37.9 C 80 17 104/55 L 95 02/18/17 14:51 02/18/17 14:51 02/18/17 14:51 02/18/17 14:51 02/18/17 14:51 Laboratory Results 02/18/17 04:05 02/18/17 12:45 02/17/17 02/18/17 02/19/17 05:59 05:59 05:59 Intake Total 2024.6 500 Output Total 1365 50 Balance 659.6 450 PT 14.9 SEC (12.0-15.0) 02/18/17 04:05 INR 1.17 (0.83-1.16) H 02/18/17 04:05 Physical Exam - Physical Exam General Appearance: alert, no apparent distress EENT: normal ENT inspection Neck: normal inspection Respiratory: lungs clear, normal breath sounds Cardiac/Chest: regular rate, rhythm, edema Abdomen: normal bowel sounds, non-tender, soft Skin: normal color, warm/dry Extremities: normal inspection Neuro/Psych: alert, normal mood/affect, oriented x 3 ICD10 Worksheet Patient Problems: Problems Problem Status Onset Acute blood loss anemia Acute S/P mitral valve replacement with bioprosthetic valve Acute Mitral valve regurgitation Acute Near syncope Acute
--- NOTE | 2017-02-18 15:38 | GCON ---
[f rep st] CONSULTATION PULMONARY/CRITICAL CARE CONSULTATION DATE OF CONSULTATION: 02/17/2017 REFERRING PHYSICIAN: Nehemiah Siddiqui DO REASON FOR CONSULTATION: Evaluation and management of anemia, hyperglycemia, and pulmonary hyperten nitish. HISTORY OF PRESENT ILLNESS: The patient is a 66-year-old woman with increased dyspnea over the past year that prompted an evaluation including an echocardiogram and heart catheterization that demonst rated a normal ejection fraction with a bileaflet mitral valve with severe MR and mild TR. She was also found to have pulmonary hypertension. She was referred to Dr. Siddiqui, who today performed a [facility] ral valve replacement. Repair was not possible due to the extensive calcifications and involvement of both mitral valve leaflets. The patient's intraoperative course was unremarkable. Postoperative ly the patient had sinus tashia with a heart rate in the 40s. There was some difficulty in getting c apture from the epicardial lead, so transvenous pacemaker was placed and is now capturing well. The patient is recovering from anesthesia and states that she has good pain control. She feels quite w eak, but does not feel short of breath. PAST MEDICAL HISTORY: Primary hyperparathyroidism, history of depression. MEDICATIONS: At the time of admission include bupropion, omeprazole. ALLERGIES: Bactrim. 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 She has a distant trivial history of smoking. She drinks a few glasses of wine daily. FAMILY HISTORY: Unremarkable. REVIEW OF SYSTEMS: A 10-point review of systems adds nothing to the History of Present Illness. PHYSICAL EXAMINATION: GENERAL: The patient is awake, alert, in no acute distress. VITAL SIGNS: H er blood pressure is 92/48 with a heart rate of 76. She is afebrile. Oxygen saturations are 100% o n 4 L. HEENT: Normocephalic and atraumatic. No icterus. NECK: No JVD. Trachea is midline. JIMMY ST: Clear to auscultation. CARDIAC: Regular rate and rhythm without murmur. ABDOMEN: Soft, nont myra. Bowel sounds are present. EXTREMITIES: No clubbing, cyanosis, or edema. LABORATORY: Chemistry group is normal with the exception of blood glucose of 158 and a sodium of 14 6. Her potassium is 3.7. Hemoglobin is 10.2 with a white blood count of 13.4. A chest x-ray demon strates a left basilar opacity that is stable compared to a prior chest x-ray. Images reviewed. A left and right heart catheterization from February 10 shows normal coronaries with an ejection fraction o f 65%. Pulmonary artery pressure was 45/18 with a wedge pressure of 15. ASSESSMENT: 1. Mitral valve regurgitation, status post replacement. 2. Sinus bradycardia. The patient is currently paced with a transvenous pacer. 3. Pulmonary hypertension. This is mild and likely related to the patient's mitral regurgitation. 4. Anemia. This is due to expected acute blood loss postoperatively. 5. Hyperglycemia. This is mild and likely related to the stress of surgery. RECOMMENDATIONS: 1. Sliding scale insulin as needed. 2. Follow hemoglobin. 3. Outpatient followup of pulmonary hypertension with an echocardiogram in a few months. /[id number]/MODL
[2017-02-18] MEDS ORDERED: WARFARIN SODIUM 5 MG TAB PO ONE (16:00)
[2017-02-18] MEDS: METOCLOPRAMIDE 10 MG/2 ML VIAL IVP PRN ×2 (16:43→21:41)
[2017-02-18 17:52] LABS: POTASSIUM 4.3 mEq/L (3.5-5.2)
[2017-02-19] MEDS: KETOROLAC 15 MG/1 ML SDV IVP SCH ×5 (00:34→23:23)
[2017-02-19] MEDS: HYDROCODONE/APAP 5/325 TAB PO PRN ×3 (03:22→23:23)
[2017-02-19 06:04] LABS: HEMATOCRIT 27.3 % (38.0-47.0); HEMOGLOBIN 9.1 g/dL (12.6-16.3); MEAN CELL HEMOGLOBIN 29.7 pg (27.9-34.1); MEAN CELL HEMOGLOBIN CONCENTR. 33.3 g/dL (32.4-36.7); MEAN CELL VOLUME 89.2 fL (81.5-99.8); RED BLOOD CELL COUNT 3.06 10^6/uL (4.18-5.33); RED CELL DISTRIBUTION WIDTH 13.8 % (11.5-15.2)
[2017-02-19 06:11] LABS: INR 1.16 (0.83-1.16); PROTIME(PATIENT) 14.8 SEC (12.0-15.0)
[2017-02-19] MEDS: HEPARIN 5,000 UNIT/0.5 ML SYR SC SCH ×3 (06:32→21:35)
[2017-02-19 06:37] LABS: ANION GAP 10 mEq/L (8-16); CALCIUM 9.8 mg/dL (8.5-10.4); CARBON DIOXIDE 23 mEq/l (22-31); CHLORIDE 105 mEq/L (97-110); CREATININE 0.7 mg/dL (0.6-1.0); GLOMERULAR FILTRATION RATE > 60; GLUCOSE 106 mg/dL (70-100); POTASSIUM 4.6 mEq/L (3.5-5.2); SODIUM 138 mEq/L (134-144)
--- NOTE | 2017-02-19 06:58 | SOAPPROG ---
SOAP Progress Note Assessment/Plan: Assessment: POD#2 MVR#29 Dickey Magna bovine pericardial bioprosthesis, AtriClip ligation left atrial appendage Sx severe MR - Bileaflet involvement not amenable to repair and replaced with tissue valve. Extubated in the OR. Moderate volume overload. Antithrombotic prophylaxis with Coumadin x 3 months. Target INR 2-3, pending stability of rhythm. Rhythm - SB/JR early postop. Assoc with hypotension responsive to low dose levo. TCPWs with high thresholds and temp pacing cath placed by EP. Pressor support not needed Vpaced at 80. Current underlying rhythm SB 60s w long 1st degree AVB. No antinodals unless development of rapid AF. Acute expected blood loss anemia - Stable. No blood products transfused. No evidence active bleeding. Plan: Blakes drains removed. Decrease backup pacing rate to 48. Ck EKG. Remove pacing cath if AJR/SB and Vwire threshold < 15. Begin gentle BID diuresis. Support BP with Midodrin 5 mg TID (with hold parameters). Cont coumadin 5 mg daily. Inc activity. Possible tx to PCU later today if rhythm stable. 02/19/17 06:57 Subjective: Doing ok. Improving appetite and sense of well being. Less puffy. No voiding difficulties post brown removal. Objective: Vital Signs Temp Pulse Resp BP Pulse Ox 36.5 C 80 16 126/66 H 94 02/18/17 20:00 02/19/17 06:00 02/19/17 06:00 02/19/17 06:00 02/19/17 06:00 Laboratory Results 02/19/17 05:51 02/19/17 05:51 02/18/17 02/19/17 02/20/17 05:59 05:59 05:59 Intake Total 2024.6 2079.5 Output Total 1365 1605 Balance 659.6 474.5 PT 14.8 SEC (12.0-15.0) 02/19/17 05:51 INR 1.16 (0.83-1.16) 02/19/17 05:51 Vpaced 80. Underlying rates 60s. 1st degree AVB. No clear high degree block. BP with lower heart rate expected to decline. Minimal suppl O2. CXR-> small left pl effusion, o/w clear. CTOP at removal criteria. Positive fluid balance. INR yet to rise. Physical Exam - Physical Exam General Appearance: alert, no apparent distress Respiratory: decreased breath sounds (left base) Cardiac/Chest: regular rate, rhythm, other (Sternum grossly stable. Sternotomy CDI) Abdomen: non-tender, soft Skin: warm/dry Extremities: swelling (1+ gen) ICD10 Worksheet Patient Problems: Problems Problem Status Onset Acute blood loss anemia Acute S/P mitral valve replacement with bioprosthetic valve Acute Mitral valve regurgitation Acute Near syncope Acute
[2017-02-19] MEDS: SENNOSIDES/DOCUSATE SODIUM TAB PO SCH ×2 (08:27→21:35)
[2017-02-19] MEDS: ASPIRIN 81 MG CHEWABLE TAB PO SCH (08:27)
[2017-02-19] MEDS: PANTOPRAZOLE SODIUM 40 MG TAB PO SCH (08:27)
[2017-02-19] MEDS: FUROSEMIDE 20 MG/2 ML VIAL IVP SCH ×2 (08:27→14:49)
[2017-02-19] MEDS: traMADol 50 MG TAB PO PRN ×2 (08:28→14:48)
[2017-02-19] MEDS: POTASSIUM CL 10 MEQ TAB PO SCH ×2 (08:28→21:35)
[2017-02-19] MEDS: CHOLECALCIFEROL VIT D3 1,000 UNITS TAB PO SCH (08:28)
[2017-02-19] MEDS: buPROPion XL 150 MG TAB PO SCH (08:28)
[2017-02-19] MEDS: CLINDAMYCIN TP SCH ×2 (08:29→21:40)
[2017-02-19] MEDS: MIDODRINE HCL 5 MG TAB PO SCH ×3 (08:29→14:48)
[2017-02-19] MEDS: BETAMETHASONE VAL 0.1% 15 GM CREAM TP SCH ×2 (08:29→21:39)
--- NOTE | 2017-02-19 09:03 | CPEKG ---
Heart Rate: 61 RR Interval: 984 QRSD Interval: 98 QT Interval: 424 QTC Interval: 427 QRS [place]: 21 T Wave [place]: -27 EKG Severity - ABNORMAL ECG - EKG Impression: ACCELERATED JUNCTIONAL ESCAPE RHYTHM EKG Impression: BORDERLINE INFERIOR Q WAVES EKG Impression: ABNORMAL T AND INFERIOR RADHIKA, CONSIDER ACUTE OR SUBACUTE ISCHEMIA, INFERIOR LEADS EKG Impression: COMPARED WITH JAN 29 2017, INFERIOR ST-T ABNORMALITIES CONCERNING FOR ISCHEMIA EKG Impression: NOW SEEN Electronically Signed By: Melissa Rubio 19-Feb-2017 14:04:29
[2017-02-19 12:56] LABS: POTASSIUM 4.6 mEq/L (3.5-5.2)
[2017-02-19] MEDS ORDERED: ATROPINE SULFATE 1 MG/ML VIAL IVP PRN (14:00)
[2017-02-19] MEDS ORDERED: WARFARIN SODIUM 5 MG TAB PO ONE (16:00)
[2017-02-19 18:22] LABS: POTASSIUM 4.6 mEq/L (3.5-5.2)
[2017-02-20 04:32] LABS: HEMATOCRIT 28.5 % (38.0-47.0); HEMOGLOBIN 9.5 g/dL (12.6-16.3); MEAN CELL HEMOGLOBIN CONCENTR. 33.3 g/dL (32.4-36.7); MEAN CELL VOLUME 89.9 fL (81.5-99.8); RED BLOOD CELL COUNT 3.17 10^6/uL (4.18-5.33); RED CELL DISTRIBUTION WIDTH 13.2 % (11.5-15.2)
[2017-02-20 04:41] LABS: INR 1.7 (0.83-1.16)
[2017-02-20 04:42] LABS: ANION GAP 7 mEq/L (8-16); CALCIUM 9.6 mg/dL (8.5-10.4); CARBON DIOXIDE 25 mEq/l (22-31); CHLORIDE 102 mEq/L (97-110); CREATININE 0.6 mg/dL (0.6-1.0); GLOMERULAR FILTRATION RATE > 60; GLUCOSE 113 mg/dL (70-100); POTASSIUM 4.6 mEq/L (3.5-5.2); SODIUM 134 mEq/L (134-144)
[2017-02-20] MEDS: KETOROLAC 15 MG/1 ML SDV IVP SCH (06:28)
[2017-02-20] MEDS: HEPARIN 5,000 UNIT/0.5 ML SYR SC SCH ×3 (06:29→20:59)
--- NOTE | 2017-02-20 07:02 | SOAPPROG ---
SOAP Progress Note Assessment/Plan: POD#2: MVR#29 Dickey Magna bovine pericardial bioprosthesis, AtriClip ligation left atrial appendage Severe MR s/p MV replacement - Antithrombotic prophylaxis with Coumadin x 3 months - target INR 2-3 - 2D ECHO today - All tubes out Junctional rhythm with associated hypotension - PPM implantation today - Will d/c RIJ pacing wire and epicardial wires after implant Acute expected blood loss anemia - Stable. No blood products transfused. No evidence active bleeding. Subjective: No complaints. Objective: Vital Signs Temp Pulse Resp BP Pulse Ox 37.5 C 90 18 96/57 L 97 02/19/17 16:00 02/20/17 06:00 02/20/17 06:00 02/20/17 06:00 02/20/17 06:00 Laboratory Results 02/20/17 04:25 02/20/17 04:25 02/19/17 02/20/17 02/21/17 05:59 05:59 05:59 Intake Total 2079.5 1488 Output Total 1605 2100 Balance 474.5 -612 PT 20.0 SEC (12.0-15.0) H 02/20/17 04:25 INR 1.70 (0.83-1.16) H 02/20/17 04:25 Physical Exam - Physical Exam General Appearance: WD/WN, alert, no apparent distress EENT: No scleral icterus (R), No scleral icterus (L) Neck: normal inspection Respiratory: No respiratory distress Cardiac/Chest: bradycardia Abdomen: non-tender, soft, No distended Skin: normal color, warm/dry Neuro/Psych: no motor/sensory deficits, alert, normal mood/affect, oriented x 3 ICD10 Worksheet Patient Problems: Problems Problem Status Onset Acute blood loss anemia Acute S/P mitral valve replacement with bioprosthetic valve Acute Mitral valve regurgitation Acute Near syncope Acute
[2017-02-20] MEDS: FUROSEMIDE 20 MG/2 ML VIAL IVP SCH ×2 (08:05→14:53)
[2017-02-20] MEDS ORDERED: ALBUMIN 5% 250 ML IV ONE ×2 (08:30→16:30)
--- NOTE | 2017-02-20 10:07 | ECHO ---
[id number] + + [phone] : : [place] [phone] : : [phone] + + Adult Echocardiographic Report + -------+ :Name: Roxana BORJA Date: 02/20/2017 08:33 AM BP: 99/59 mmHg : : Hospital Admission Number: [id number] Locati on: 254: :: 1950 Gender: Female Height: 68 in : :Age: 66 yrs Race: WH Weight: 207 lb : :Reason For Study: Bradycardia/ low BP s/p : : BSA: 2.1 meter s2 : :History: s/p MVR : + -------+ MMode/2D Measurements \T\ Calculations IVSd: 0.86 cm LVIDd: 4.2 cm FS: 28.6 % LVPWd: 0.99 cm LVIDs: 3.0 cm EDV(Teich): 77.7 ml ESV(Teich): 34.6 ml EF(Teich): 55.5 % Normal Measurement Values: + + :LVIDd (3.5-5.7cm) IVSd (0.6-1.1cm) LVPWd (0.6-1.1cm) Aortic Root (2.0-3.7cm)Left Atrium (1.5-4.0cm): :LV Vol(d) (76-115ml) LV Vol(s) (29-48ml) Ejec Fraction (50-65%)PV Abdias (0.6- 1.2m/s) TV Abdias (0.4-1.0m/s) : :MV E Abdias (0.8-1.0m/s)MV A Abdias (0.3-1.0m/s)LVOT Abdias (0.7-1.2m/s) Asc Ao Abdias ( 0.9-1.8m/s) : + + Doppler Measurements \T\ Calculations MV V2 mean: 105.6 cm/sec TR max abdias: 213.6 cm/sec MV mean P.8 mmHg TR max P.2 mmHg MV V2 VTI: 42.3 cm Left Ventricle The left ventricle is normal in size and function. There is normal left ventricular wall thickness. Ejection Fraction = 55-60%. Mild post-op septal motion noted. Right Ventricle The right ventricle is normal in size and function. Mitral Valve Mean gradient when patient in NSR 4mmHg. No significant mitral regurgitation. There is a bioprosthetic mitral valve. Prosthetic mitral valve peak and/or mean gradients are normal. Tricuspid Valve The tricuspid valve is normal in structure and function. There is no tricuspid stenosis. There is mild tricuspid regurgitation. Right ventricular systolic pressure is 23mmHg. Pericardium/Pleural There is no pericardial effusion. Pleural effusion noted. Conclusion Limited echocardiogram to assess LVFX. S/P #29mm Bioprosthetic MVR. First few pictures are with pacemaker on then it was turned off and patient was in normal sinus rhythm. The left ventricle is normal in size and function. Ejection Fraction = 55-60%. Mild post-operative septal motion. There is a bioprosthetic mitral valve that is well seated. Prosthetic mitral valve peak and/or mean gradients are normal. Mean gradient when patient in NSR 4mmHg. No significant mitral regurgitation. There is mild tricuspid regurgitation. Right ventricular systolic pressure is 23mmHg. Pleural effusion noted. Final Reading Physician: Helena Chen signed on 02/20/2017 10:06 AM Ordering Physician: Nehemiah Siddiqui Performed By: Yakelin Olivo
[2017-02-20 10:41] LABS: MAGNESIUM 2.1 mg/dL (1.6-2.3)
--- NOTE | 2017-02-20 11:02 | CPEKG ---
Heart Rate: 64 RR Interval: 938 QRSD Interval: 94 QT Interval: 420 QTC Interval: 434 QRS [place]: 37 T Wave [place]: -6 EKG Severity - ABNORMAL ECG - EKG Impression: SINUS OR ECTOPIC ATRIAL RHYTHM EKG Impression: BORDERLINE INFERIOR Q WAVES EKG Impression: EVOLVING INFERO POSTERIOR INFARCT EKG Impression: ABNORMAL T, CONSIDER ISCHEMIA, INFERIOR LEADS EKG Impression: MINIMAL ST ELEVATION, INFERIOR LEADS EKG Impression: COMPARED WITH 19 FEB 2017, JUNCTIONAL RHYTHM NO LONGER PRESENT Electronically Signed By: Melissa Rubio 20-Feb-2017 13:53:30
--- NOTE | 2017-02-20 12:22 | PDINTPN ---
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 Anemia: H/H low but stable. No signs active bleeding. Hyperglycemia: Improved. Pulmonary HTN: Mild. Plan: Follow H/H, blood sugars. Slowly wean DA, consider PPM if still pacer- dependent off DA. Outpatient ECHO for follow-up of pulmonary HTN. 02/20/17 12:23 02/20/17 12:23 Subjective: [place] lightheaded trying to walk. Poor appetite/PO intake due to metallic taste in mouth and a feeling of bloating. Objective: Vital Signs Temp Pulse Resp BP Pulse Ox 36.8 C 72 26 H 97/40 L 95 02/20/17 12:00 02/20/17 12:00 02/20/17 12:00 02/20/17 12:00 02/20/17 12:00 Laboratory Results 02/20/17 04:25 02/20/17 04:25 02/19/17 02/20/17 02/21/17 05:59 05:59 05:59 Intake Total 2079.5 1488 Output Total 1605 2100 Balance 474.5 -612 PT 20.0 SEC (12.0-15.0) H 02/20/17 04:25 INR 1.70 (0.83-1.16) H 02/20/17 04:25 CXR: basilar atelectasis. Images reviewed. Physical Exam - Physical Exam General Appearance: alert, no apparent distress EENT: normal ENT inspection Neck: normal inspection Respiratory: lungs clear, normal breath sounds Cardiac/Chest: regular rate, rhythm, No edema Abdomen: normal bowel sounds, non-tender, soft Skin: normal color, warm/dry Extremities: non-tender Neuro/Psych: alert, normal mood/affect, oriented x 3 ICD10 Worksheet Patient Problems: Problems Problem Status Onset Acute blood loss anemia Acute S/P mitral valve replacement with bioprosthetic valve Acute Mitral valve regurgitation Acute Near syncope Acute
[2017-02-20] MEDS: CLINDAMYCIN TP SCH ×2 (13:10→19:31)
[2017-02-20] MEDS: MIDODRINE HCL 5 MG TAB PO SCH ×3 (13:31→16:26)
[2017-02-20] MEDS: buPROPion XL 150 MG TAB PO SCH (13:31)
[2017-02-20] MEDS: POTASSIUM CL 10 MEQ TAB PO SCH ×2 (13:31→20:59)
[2017-02-20] MEDS: ASPIRIN 81 MG CHEWABLE TAB PO SCH (13:31)
[2017-02-20] MEDS: PANTOPRAZOLE SODIUM 40 MG TAB PO SCH (13:32)
[2017-02-20] MEDS: SENNOSIDES/DOCUSATE SODIUM TAB PO SCH ×2 (13:32→20:59)
[2017-02-20] MEDS: CHOLECALCIFEROL VIT D3 1,000 UNITS TAB PO SCH (13:33)
[2017-02-20] MEDS: BETAMETHASONE VAL 0.1% 15 GM CREAM TP SCH ×2 (13:36→19:31)
[2017-02-20] MEDS ORDERED: ALBUMIN 5% 250 ML BOTTLE IV ONE (16:23)
[2017-02-20] MEDS: HYDROCODONE/APAP 5/325 TAB PO PRN (17:58)
[2017-02-21 05:00] LABS: HEMATOCRIT 24.3 % (38.0-47.0); HEMOGLOBIN 8.1 g/dL (12.6-16.3); MEAN CELL HEMOGLOBIN CONCENTR. 33.3 g/dL (32.4-36.7); RED BLOOD CELL COUNT 2.7 10^6/uL (4.18-5.33); RED CELL DISTRIBUTION WIDTH 13.2 % (11.5-15.2)
[2017-02-21 05:02] LABS: INR 2.18 (0.83-1.16); PROTIME(PATIENT) 24.4 SEC (12.0-15.0)
[2017-02-21 05:05] LABS: ANION GAP 6 mEq/L (8-16); CALCIUM 9.5 mg/dL (8.5-10.4); CARBON DIOXIDE 25 mEq/l (22-31); CHLORIDE 103 mEq/L (97-110); CREATININE 0.6 mg/dL (0.6-1.0); GLOMERULAR FILTRATION RATE > 60; GLUCOSE 118 mg/dL (70-100); POTASSIUM 4.5 mEq/L (3.5-5.2); SODIUM 134 mEq/L (134-144)
[2017-02-21] MEDS: HEPARIN 5,000 UNIT/0.5 ML SYR SC SCH (05:49)
[2017-02-21] MEDS: BETAMETHASONE VAL 0.1% 15 GM CREAM TP SCH ×2 (06:57→20:31)
--- NOTE | 2017-02-21 07:32 | SOAPPROG ---
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 Would like to get PPM today if possible. Feels puffy. Denies pain/SOB. Objective: Vital Signs Temp Pulse Resp BP Pulse Ox 36.8 C 90 24 H 88/58 L 93 02/20/17 20:00 02/21/17 06:00 02/21/17 06:00 02/21/17 06:00 02/21/17 06:00 Laboratory Results 02/21/17 03:00 02/21/17 03:00 02/20/17 02/21/17 02/22/17 05:59 05:59 05:59 Intake Total 1488 1564 Output Total 2100 Balance -612 1564 PT 24.4 SEC (12.0-15.0) H 02/21/17 03:00 INR 2.18 (0.83-1.16) H 02/21/17 03:00 Physical Exam - Physical Exam General Appearance: WD/WN, alert, no apparent distress EENT: No scleral icterus (R), No scleral icterus (L) Neck: normal inspection Respiratory: No respiratory distress Cardiac/Chest: bradycardia, other (JR) Abdomen: non-tender, soft, No distended Skin: normal color, warm/dry Extremities: pedal edema Neuro/Psych: no motor/sensory deficits, alert, normal mood/affect, oriented x 3 ICD10 Worksheet Patient Problems: Problems Problem Status Onset Acute blood loss anemia Acute S/P mitral valve replacement with bioprosthetic valve Acute Mitral valve regurgitation Acute Near syncope Acute
[2017-02-21] MEDS: MIDODRINE HCL 5 MG TAB PO SCH ×3 (07:40→17:33)
--- NOTE | 2017-02-21 08:12 | CPEKG ---
Heart Rate: 90 RR Interval: 667 P-R Interval: 121 QRSD Interval: 152 QT Interval: 408 QTC Interval: 500 P [place]: 0 QRS [place]: -30 T Wave [place]: 129 EKG Severity - ABNORMAL ECG - EKG Impression: VENTRICULAR-PACED RHYTHM EKG Impression: COMPARED WITH 20 FEB 2017, V PACING NOW PRESENT Electronically Signed By: Melissa Rubio 21-Feb-2017 15:48:38
[2017-02-21] MEDS ORDERED: diphenhydrAMINE 25 MG CAP PO ONE (08:53)
[2017-02-21] MEDS ORDERED: ceFAZolin 2 GM/DEXTROSE 100 ML IV ONE (08:53)
[2017-02-21] MEDS ORDERED: DIAZEPAM 5 MG TAB PO ONE (08:53)
[2017-02-21] MEDS ORDERED: NS 1,000 ML IV SCH (09:00)
[2017-02-21] MEDS ORDERED: LIDOCAINE 1% 300 MG/30 ML SDV ONE (09:42)
[2017-02-21] MEDS ORDERED: MIDAZOLAM 2 MG/2 ML VIAL ONE (09:43)
[2017-02-21] MEDS ORDERED: fentaNYL 100 MCG/2 ML INJ ONE (09:43)
[2017-02-21] MEDS ORDERED: LIDO/EPI 1% **for epidural** 30 ML SDV ONE (09:43)
[2017-02-21] MEDS ORDERED: BUPIVACAINE 0.5% 30 ML SDV ONE (09:43)
[2017-02-21] MEDS ORDERED: IOPAMIDOL (ISOVUE-300) 150 ML BTL ONE (09:49)
[2017-02-21] MEDS ORDERED: BACITRACIN 50,000 UNIT in SODIUM CL IRRIG SOLUTION 1,000 ML IRR ONE (10:00)
[2017-02-21] MEDS ORDERED: PROTOCOL POTASSIUM 1 DOSE MISC PRN ×3 (10:02→20:11)
[2017-02-21] MEDS ORDERED: CEFAZOLIN 1 GM/DEXTROSE/50 ML BAG IV ONE (10:44)
[2017-02-21] MEDS: CLINDAMYCIN TP SCH ×2 (10:51→20:30)
[2017-02-21] MEDS ORDERED: FUROSEMIDE 40 MG/4 ML VIAL ONE (12:07)
--- NOTE | 2017-02-21 12:45 | PDINTPN ---
Professional Engineer Progress Note Assessment/Plan: Assessment: S/P MV replacement 02/17: Recoveing well post-op Bradycardia: Just returned from PPM placement. Capturing well. Still on DA. Anemia: H/H fell a bit this morning. No signs active bleeding. Hyperglycemia: Improved. Pulmonary HTN: Mild. Plan: Repeat H/H after PRBCs. Follow blood sugars. Slowly wean DA. Outpatient ECHO for follow-up of pulmonary HTN. 02/21/17 12:43 Subjective: Feels OK, thirsty. Denies pain. Objective: Vital Signs Temp Pulse Resp BP Pulse Ox 36.7 C 90 24 H 106/82 H 100 02/21/17 08:00 02/21/17 08:00 02/21/17 08:00 02/21/17 08:00 02/21/17 08:00 Laboratory Results 02/21/17 03:00 02/21/17 03:00 02/20/17 02/21/17 02/22/17 05:59 05:59 05:59 Intake Total 1488 1564 Output Total 2100 Balance -612 1564 PT 24.4 SEC (12.0-15.0) H 02/21/17 03:00 INR 2.18 (0.83-1.16) H 02/21/17 03:00 Physical Exam - Physical Exam General Appearance: alert, no apparent distress EENT: normal ENT inspection Neck: normal inspection Respiratory: lungs clear, normal breath sounds Cardiac/Chest: regular rate, rhythm, other (PPM site OK.), No edema Abdomen: non-tender, soft Skin: normal color, warm/dry Extremities: normal inspection Neuro/Psych: alert, normal mood/affect, oriented x 3 ICD10 Worksheet Patient Problems: Problems Problem Status Onset Acute blood loss anemia Acute S/P mitral valve replacement with bioprosthetic valve Acute Mitral valve regurgitation Acute Near syncope Acute
[2017-02-21] MEDS: SENNOSIDES/DOCUSATE SODIUM TAB PO SCH ×2 (13:19→20:23)
[2017-02-21] MEDS: PANTOPRAZOLE SODIUM 40 MG TAB PO SCH (13:19)
[2017-02-21] MEDS: CHOLECALCIFEROL VIT D3 1,000 UNITS TAB PO SCH (13:19)
[2017-02-21] MEDS: buPROPion XL 150 MG TAB PO SCH (13:20)
[2017-02-21] MEDS: ASPIRIN 81 MG CHEWABLE TAB PO SCH (13:20)
--- NOTE | 2017-02-21 13:21 | CPIP ---
[f rep st] INVASIVE CARDIAC PROCEDURE DATE OF PROCEDURE: 02/21/2017 INDICATIONS: The patient is a pleasant 66-year-old female. She is postoperative day 4 after [facility] mitral valve replacement surgery. She has been in a junctional rhythm with symptomatic bradyca rdia and hypotension. PROCEDURE: Implantation of a dual-chamber pacemaker. TECHNIQUE: Following informed consent and in the fasting state, the patient was brought to cardiac catheterization laboratory. Ancef was administered prophylactically immediately prior to the proced ure. Left chest was prepped and draped in the usual sterile fashion. 2% lidocaine was infiltrated in the skin below the left clavicle. The #10 blade was used to make a 3 cm incision. This was garza ied down to the prepectoral fascia. The pocket was formed bluntly. A venogram was performed, ident ifying a widely patent axillary subclavian system. Using the modified Seldinger technique, access w as gained to the axillary vein with 2 separate sticks, and individual J wires were positioned. Each of these wires was used to place a 6-Syriac sheath. The atrial lead and ventricular lead were then positioned. The leads were tested with excellent capture and sensing. The sheaths were torn away and the leads secured to the pacemaker pocket floor using 0 Ethibond. The pocket was then inspected . All bleeders were cauterized. The pocket was irrigated with antibiotic containing solution. D-S tat was then applied to the pocket for adequate hemostasis. The device was brought to the field, teofilo th leads identified by serial number and affixed to the header according to fishing gear mechanic guidelines. The device and the redundant portions of both leads was then placed in the pocket. The pocket was then closed in 3 layers, initially using 2 layers of interrupted suture with 2 and 3-0 Vicryl and f inally 3-0 Stratafix for the skin. Steri-Strips and a dry dressing were applied. COMPLICATIONS: None. DEVICE INFORMATION: The pacemaker is a [employer] Assurity MRI device, model number [id number], s erial number [id number]. The atrial lead is a [employer] Tendril SDX, 2088TC 46 cm lead, serial number [id number]. Ventricular lead [employer] 2088TC, 52 cm lead, serial number [id number]. In the atrium capture, it was 0.6 V at 0.5 milliseconds with sensed retrograde P waves of 1.4 mV and a lead impedance of 378 ohms. In the ventricle capture, 0.5 V at 0.6 milliseconds, sensed R-waves of 13.8 mV and impedance of 508 ohms. There was no diaphragmatic stimulation. The patient was programmed AAI due to an extensively long retrograde conduction of the P-waves. DISPOSITION: The patient will be transferred to the ICU. /[id number]/MODL
--- NOTE | 2017-02-21 13:25 | CPEKG ---
Heart Rate: 99 RR Interval: 606 P-R Interval: 264 QRSD Interval: 152 QT Interval: 416 QTC Interval: 534 P [place]: 0 QRS [place]: -32 T Wave [place]: 124 EKG Severity - ABNORMAL ECG - EKG Impression: VENTRICULAR-PACED RHYTHM Electronically Signed By: Melissa Rubio 21-Feb-2017 15:48:15
[2017-02-21 13:40] LABS: HEMATOCRIT 28.1 % (38.0-47.0); HEMOGLOBIN 9.4 g/dL (12.6-16.3)
[2017-02-21] MEDS: FUROSEMIDE 20 MG/2 ML VIAL IVP SCH (13:46)
[2017-02-21] MEDS: POTASSIUM CL 10 MEQ TAB PO SCH (13:46)
[2017-02-21] MEDS: FUROSEMIDE 40 MG/4 ML VIAL IVP SCH (16:00)
[2017-02-21] MEDS ORDERED: NOREPINEPHRINE BITARTRATE 16 MG in NS 250 ML IV SCH (16:30)
[2017-02-21 18:13] LABS: POTASSIUM 3.7 mEq/L (3.5-5.2)
[2017-02-21] MEDS: POTASSIUM Cl (KCl) 100 ML IV SCH ×2 (19:48→20:24)
[2017-02-21] MEDS ORDERED: POTASSIUM CL 10 MEQ TAB PO ONE ×2 (20:17→21:45)
[2017-02-21] MEDS ORDERED: FUROSEMIDE 40 MG/4 ML VIAL IVP ONE (21:45)
[2017-02-22 00:48] LABS: POTASSIUM 3.6 mEq/L (3.5-5.2)
[2017-02-22] MEDS ORDERED: POTASSIUM CL 20 MEQ TAB PO ONE (01:06)
[2017-02-22 05:35] LABS: % IMMATURE GRANULYOCYTES 0.5 % (0.0-1.1); ABSOLUTE IMMATURE GRANULOCYTES 0.05 10^3/uL (0.00-0.10); ADD DIFF? NO; ADD MORPH? NO; ADD SCAN? NO; ATYPICAL LYMPHOCYTE FLAG 0 (0-99); FRAGMENT RBC FLAG 0 (0-99); HEMATOCRIT 28.9 % (38.0-47.0); HEMOGLOBIN 9.7 g/dL (12.6-16.3); LEFT SHIFT FLG 0 (0-99); LIPEMIA HEMOLYSIS FLAG 80 (0-99); MEAN CELL HEMOGLOBIN 29.9 pg (27.9-34.1); MEAN CELL HEMOGLOBIN CONCENTR. 33.6 g/dL (32.4-36.7); MEAN CELL VOLUME 89.2 fL (81.5-99.8); MEAN PLATELET VOLUME 10.3 fL (8.7-11.7); PLATELET CLUMPS FLAG 0 (0-99); PLATELET COUNT 152 10^3/uL (150-400); RED BLOOD CELL COUNT 3.24 10^6/uL (4.18-5.33); RED CELL DISTRIBUTION WIDTH 13.5 % (11.5-15.2)
[2017-02-22 05:44] LABS: INR 1.63 (0.83-1.16); PROTIME(PATIENT) 19.4 SEC (12.0-15.0)
[2017-02-22 05:47] LABS: ANION GAP 6 mEq/L (8-16); CALCIUM 9.5 mg/dL (8.5-10.4); CARBON DIOXIDE 27 mEq/l (22-31); CHLORIDE 102 mEq/L (97-110); CREATININE 0.7 mg/dL (0.6-1.0); GLOMERULAR FILTRATION RATE > 60; GLUCOSE 98 mg/dL (70-100); POTASSIUM 3.9 mEq/L (3.5-5.2); SODIUM 135 mEq/L (134-144)
--- NOTE | 2017-02-22 08:11 | SOAPPROG ---
SOAP Progress Note Assessment/Plan: POD#5: MVR#29 Dickey Magna bovine pericardial bioprosthesis, AtriClip ligation left atrial appendage POD#1: Dual chamber PPM implantation Severe MR s/p MV replacement - BB not started d/t hypotension - Antithrombotic prophylaxis with ASA and Coumadin x 3 months - target INR 2-3 - 11 kgs over pre-op weight with B/L pleural effusions - Continue Lasix Junctional rhythm with associated hypotension s/p PPM placement - Will cut PW today and remove RIJ cordis - Clear for transfer to PCU Acute blood loss anemia - Stable s/p 1U PRBC Subjective: Feels much better today. Better spirits. No pain/SOB. Objective: Vital Signs Temp Pulse Resp BP Pulse Ox 36.8 C 78 18 96/54 L 93 02/22/17 04:00 02/22/17 07:00 02/22/17 07:00 02/22/17 07:00 02/22/17 07:00 Laboratory Results 02/22/17 05:20 02/22/17 05:20 02/21/17 02/22/17 02/23/17 05:59 05:59 05:59 Intake Total 1564 2155 Balance 1564 2155 PT 19.4 SEC (12.0-15.0) H 02/22/17 05:20 INR 1.63 (0.83-1.16) H 02/22/17 05:20 Physical Exam - Physical Exam General Appearance: WD/WN, alert, no apparent distress EENT: No scleral icterus (R), No scleral icterus (L) Neck: normal inspection Respiratory: No respiratory distress Cardiac/Chest: regular rate, rhythm, other (AP) Abdomen: non-tender, soft, No distended Skin: normal color, warm/dry Extremities: pedal edema Neuro/Psych: no motor/sensory deficits, alert, normal mood/affect, oriented x 3 ICD10 Worksheet Patient Problems: Problems Problem Status Onset Acute blood loss anemia Acute S/P mitral valve replacement with bioprosthetic valve Acute Mitral valve regurgitation Acute Near syncope Acute
[2017-02-22] MEDS: MIDODRINE HCL 5 MG TAB PO SCH ×3 (08:22→17:09)
[2017-02-22] MEDS: SENNOSIDES/DOCUSATE SODIUM TAB PO SCH ×2 (08:37→21:35)
[2017-02-22] MEDS: FUROSEMIDE 40 MG/4 ML VIAL IVP SCH ×2 (09:39→17:06)
[2017-02-22] MEDS: CHOLECALCIFEROL VIT D3 1,000 UNITS TAB PO SCH (09:39)
[2017-02-22] MEDS: PANTOPRAZOLE SODIUM 40 MG TAB PO SCH (09:39)
[2017-02-22] MEDS: ASPIRIN 81 MG CHEWABLE TAB PO SCH (09:39)
[2017-02-22] MEDS: CLINDAMYCIN TP SCH (09:39)
[2017-02-22] MEDS: buPROPion XL 150 MG TAB PO SCH (09:39)
[2017-02-22] MEDS: BETAMETHASONE VAL 0.1% 15 GM CREAM TP SCH (09:40)
[2017-02-22] MEDS ORDERED: ALBUMIN 5% 250 ML IV ONE (15:00)
[2017-02-22 15:09] LABS: POTASSIUM 3.3 mEq/L (3.5-5.2)
[2017-02-22] MEDS ORDERED: ALBUMIN 5% 250 ML BOTTLE IV ONE (15:11)
[2017-02-22] MEDS: POTASSIUM CL 20 MEQ TAB PO SCH ×3 (15:55→19:39)
[2017-02-22] MEDS ORDERED: WARFARIN SODIUM 5 MG TAB PO ONE (16:00)
[2017-02-23 05:15] LABS: INR 1.61 (0.83-1.16); PROTIME(PATIENT) 19.2 SEC (12.0-15.0)
[2017-02-23 05:22] LABS: ANION GAP 6 mEq/L (8-16); CARBON DIOXIDE 25 mEq/l (22-31); CHLORIDE 103 mEq/L (97-110); CREATININE 0.6 mg/dL (0.6-1.0); GLOMERULAR FILTRATION RATE > 60; GLUCOSE 84 mg/dL (70-100); SODIUM 134 mEq/L (134-144)
--- NOTE | 2017-02-23 07:36 | SOAPPROG ---
SOAP Progress Note Assessment/Plan: Assessment: POD#6 MVR#29 Dickey Magna bovine pericardial bioprosthesis, AtriClip ligation left atrial appendage POD#2 dual chamber PPM. Sx severe MR - Bileaflet involvement not amenable to repair and replaced with tissue valve. Extubated in the OR. Moderate volume overload. Diuresis delayed by sx bradycardia. Antithrombotic prophylaxis with Coumadin x 3 months. Target INR 2-3, pending stability of rhythm. Rhythm - SB/JR early postop. Assoc with hypotension requiring fluid&pressor support. TCPWs with high thresholds and temp pacing cath placed by EP. Ongoing sinus node dysfx and PPM ultimately placed. Some pacemaker mediated tachycardia and mode temporarily switched to AAI. Currently DDD. Insufficient BP for AF prophylaxis with BB. Acute expected blood loss anemia - Stable s/p 2u PRBC. No evidence active bleeding. Anticoagulation in progress. Plan: Switch to oral diuresis BID. Switch midodrin to florinef. Cont coumadin 5 mg daily. Inc activity. Tx to PCU. 02/23/17 07:34 Subjective: Doing ok. + BM. Improving stamina. No acute concerns. Objective: Vital Signs Temp Pulse Resp BP Pulse Ox 36.9 C 71 21 H 99/60 L 97 02/23/17 00:00 02/23/17 06:00 02/23/17 06:00 02/23/17 06:00 02/23/17 06:00 Laboratory Results 02/22/17 05:20 02/23/17 04:55 02/22/17 02/23/17 02/24/17 05:59 05:59 05:59 Intake Total 2155 1650 Output Total 3100 Balance 2155 -1450 PT 19.2 SEC (12.0-15.0) H 02/23/17 04:55 INR 1.61 (0.83-1.16) H 02/23/17 04:55 Intermittent AP. No recurrent tachycardia. BP remains marginal, despite midodrin. Improved fluid balance. +7 kg overall. CXR -> Small bilat pl effusions, rt basilar atelectasis. Stable labs. INR yet to plateau. - Pending Discharge Pending Discharge Within 48 Hours: Yes Pending Discharge Date: 02/25/17 Pending Discharge Time: 11:00 Physical Exam - Physical Exam General Appearance: alert, no apparent distress Respiratory: lungs clear Cardiac/Chest: regular rate, rhythm, friction rub, other (Sternotomy CDI) Abdomen: non-tender, soft Skin: warm/dry Extremities: swelling (1+ dependent) ICD10 Worksheet Patient Problems: Problems Problem Status Onset Acute blood loss anemia Acute S/P mitral valve replacement with bioprosthetic valve Acute Mitral valve regurgitation Acute Near syncope Acute
[2017-02-23] MEDS: buPROPion XL 150 MG TAB PO SCH (08:40)
[2017-02-23] MEDS: ASPIRIN 81 MG CHEWABLE TAB PO SCH (08:40)
[2017-02-23] MEDS: POTASSIUM CL 20 MEQ TAB PO SCH (08:41)
[2017-02-23] MEDS: CHOLECALCIFEROL VIT D3 1,000 UNITS TAB PO SCH (08:41)
[2017-02-23] MEDS: PANTOPRAZOLE SODIUM 40 MG TAB PO SCH (08:41)
--- NOTE | 2017-02-23 08:47 | CPEKG ---
Heart Rate: 70 RR Interval: 857 QRSD Interval: 92 QT Interval: 388 QTC Interval: 419 QRS [place]: 44 T Wave [place]: -5 EKG Severity - ABNORMAL ECG - EKG Impression: ACCELERATED JUNCTIONAL RHYTHM EKG Impression: BORDERLINE ST ELEVATION, INFERIOR LEADS EKG Impression: IN COMPARISON TO PRIOR ECG, NO VENTRICULAR PACING NOTED. RHYTHM APPEARS TO BE EKG Impression: JUNCTIONAL (INTERMITTENT "P" WAVES ARE NOTED AT THE END OF THE TRACING) Electronically Signed By: Oz Barragan 25-Feb-2017 12:41:01
[2017-02-23] MEDS: FUROSEMIDE 40 MG/4 ML VIAL IVP SCH (09:42)
[2017-02-23] MEDS: traMADol 50 MG TAB PO PRN ×3 (09:45→22:26)
[2017-02-23] MEDS: FLUDROCORTISONE ACETATE 0.1 MG TAB PO SCH (11:06)
[2017-02-23] MEDS ORDERED: FUROSEMIDE 40 MG TAB PO SCH (15:00)
[2017-02-23] MEDS ORDERED: WARFARIN SODIUM 5 MG TAB PO ONE (16:00)
[2017-02-23 20:26] LABS: POTASSIUM 3.7 mEq/L (3.5-5.2)
[2017-02-23] MEDS ORDERED: POTASSIUM CL 10 MEQ TAB PO ONE (20:37)
[2017-02-23] MEDS ORDERED: FUROSEMIDE 40 MG/4 ML VIAL IVP ONE (20:38)
[2017-02-23] MEDS ORDERED: POTASSIUM CL 20 MEQ/15 ML UDCUP PO SCH (22:00)
[2017-02-24 05:31] LABS: HEMATOCRIT 27.1 % (38.0-47.0); HEMOGLOBIN 9.2 g/dL (12.6-16.3); MEAN CELL HEMOGLOBIN 30.6 pg (27.9-34.1); MEAN CELL HEMOGLOBIN CONCENTR. 33.9 g/dL (32.4-36.7); RED BLOOD CELL COUNT 3.01 10^6/uL (4.18-5.33)
[2017-02-24 05:39] LABS: INR 2.77 (0.83-1.16); PROTIME(PATIENT) 29.6 SEC (12.0-15.0)
[2017-02-24 06:17] LABS: ANION GAP 9 mEq/L (8-16); CALCIUM 9.4 mg/dL (8.5-10.4); CARBON DIOXIDE 24 mEq/l (22-31); CHLORIDE 101 mEq/L (97-110); CREATININE 0.6 mg/dL (0.6-1.0); GLOMERULAR FILTRATION RATE > 60; GLUCOSE 92 mg/dL (70-100); SODIUM 134 mEq/L (134-144)
--- NOTE | 2017-02-24 08:16 | SOAPPROG ---
SOAP Progress Note Assessment/Plan: Assessment: POD#7 MVR#29 Dickey Magna bovine pericardial bioprosthesis, AtriClip ligation left atrial appendage POD#3 dual chamber PPM. Sx severe MR - Bileaflet involvement not amenable to repair and replaced with tissue valve. Extubated in the OR. Moderate volume overload. Diuresis delayed by sx bradycardia, but now in progress. Somewhat resistant to oral lasix and kept on IV lasix. BP support with Florinef. Antithrombotic prophylaxis with Coumadin x 3 months. Target INR 2-3. Rhythm - SB/JR early postop. Assoc with hypotension requiring fluid & pressor support. TCPWs with high thresholds and temp pacing cath placed by EP. Ongoing sinus node dysfx and PPM ultimately placed. Some pacemaker mediated tachycardia and mode temporarily switched to AAI. Currently DDD. Insufficient BP for AF prophylaxis with BB. Acute expected blood loss anemia - Stable s/p 2u PRBC. No evidence active bleeding. Anticoagulation in progress. Plan: Cont Lasix 40 mg IV BID thru today. Cont daily florinef. No Coumadin today. Cont inc activity. Dispo - Home in 2 days if responding to oral diuresis. 02/24/17 08:09 Objective: Vital Signs Temp Pulse Resp BP Pulse Ox 36.8 C 58 L 18 93/47 L 91 L 02/24/17 07:38 02/24/17 07:38 02/24/17 07:38 02/24/17 07:38 02/24/17 07:38 Laboratory Results 02/24/17 04:00 02/24/17 04:00 02/23/17 02/24/17 02/25/17 05:59 05:59 05:59 Intake Total 1650 1500 Output Total 3100 3100 Balance -1450 -1600 PT 29.6 SEC (12.0-15.0) H D 02/24/17 04:00 INR 2.77 (0.83-1.16) H 02/24/17 04:00 ICD10 Worksheet Patient Problems: Problems Problem Status Onset Acute blood loss anemia Acute S/P mitral valve replacement with bioprosthetic valve Acute Mitral valve regurgitation Acute Near syncope Acute
[2017-02-24] MEDS: PANTOPRAZOLE SODIUM 40 MG TAB PO SCH (08:54)
[2017-02-24] MEDS: FUROSEMIDE 40 MG/4 ML VIAL IVP SCH ×2 (08:54→17:08)
[2017-02-24] MEDS: CHOLECALCIFEROL VIT D3 1,000 UNITS TAB PO SCH (08:54)
[2017-02-24] MEDS: FLUDROCORTISONE ACETATE 0.1 MG TAB PO SCH (08:54)
[2017-02-24] MEDS: buPROPion XL 150 MG TAB PO SCH (08:54)
[2017-02-24] MEDS: ASPIRIN 81 MG CHEWABLE TAB PO SCH (08:54)
--- NOTE | 2017-02-24 09:52 | SOAPPROG ---
SOAP Progress Note Assessment/Plan: Assessment: POD#7 MVR#29 Dickey Magna bovine pericardial bioprosthesis, AtriClip ligation left atrial appendage POD#3 dual chamber PPM. Sx severe MR - Bileaflet involvement not amenable to repair and replaced with tissue valve. Extubated in the OR. Moderate volume overload. Diuresis delayed by sx bradycardia, but now in progress. Somewhat resistant to oral lasix and switched back to IV lasix. BP support with Florinef. Antithrombotic prophylaxis with Coumadin x 3 months. Target INR 2-3. Rhythm - SB/JR early postop. Assoc with hypotension requiring fluid & pressor support. TCPWs with high thresholds and temp pacing cath placed by EP. Ongoing sinus node dysfx and PPM ultimately placed. Some pacemaker mediated tachycardia and mode temporarily switched to AAI. Currently DDD. Rare Vpacing. Insufficient BP for AF prophylaxis with BB. Acute expected blood loss anemia - Stable s/p 2u PRBC. No evidence active bleeding. Anticoagulation in progress. Plan: Cont Lasix 40 mg IV BID thru today. Cont daily florinef. No Coumadin today. Cont inc activity. Dispo - Home in 2 days if responding to oral diuresis. 02/24/17 08:09 Subjective: Feels great. Recovering her stamina. No longer feels swollen. Minimal incisional discomfort. Looking forward to a shower. Objective: Vital Signs Temp Pulse Resp BP Pulse Ox 36.8 C 58 L 18 93/47 L 91 L 02/24/17 07:38 02/24/17 07:38 02/24/17 07:38 02/24/17 07:38 02/24/17 07:38 Laboratory Results 02/24/17 04:00 02/24/17 04:00 02/23/17 02/24/17 02/25/17 05:59 05:59 05:59 Intake Total 1650 1500 Output Total 3100 3100 Balance -1450 -1600 PT 29.6 SEC (12.0-15.0) H D 02/24/17 04:00 INR 2.77 (0.83-1.16) H 02/24/17 04:00 Cardioresp status stable. Holding SBP > 90. Satting well on RA. Modest diuresis with am oral lasix, significantly augmented on pm IV lasix. INR back on the rise. Physical Exam - Physical Exam General Appearance: alert, no apparent distress Respiratory: crackles (bases) Cardiac/Chest: regular rate, rhythm, other (Sternum grossly stable. Sternotomy CDI. CT sites clean and moist.) Abdomen: non-tender, soft Skin: warm/dry Extremities: swelling (no visible edema) ICD10 Worksheet Patient Problems: Problems Problem Status Onset Acute blood loss anemia Acute S/P mitral valve replacement with bioprosthetic valve Acute Mitral valve regurgitation Acute Near syncope Acute
[2017-02-24] MEDS: POTASSIUM CL 20 MEQ TAB PO SCH ×2 (11:51→22:35)
[2017-02-24] MEDS ORDERED: AMIODARONE HCL 100 ML IV ONE (18:33)
[2017-02-24] MEDS ORDERED: AMIODARONE HCL 200 ML IV ONE (18:33)
[2017-02-24] MEDS ORDERED: AMIODARONE HCL 150 MG/100 ML BAG (1.5 MG/ML) IV ONE (18:34)
[2017-02-24 19:12] LABS: MAGNESIUM 1.8 mg/dL (1.6-2.3); POTASSIUM 3.5 mEq/L (3.5-5.2)
[2017-02-24] MEDS ORDERED: POTASSIUM CL 10 MEQ TAB PO ONE (20:02)
[2017-02-24] MEDS ORDERED: POTASSIUM CL 20 MEQ TAB PO ONE (20:31)
[2017-02-24] MEDS: SENNOSIDES/DOCUSATE SODIUM TAB PO PRN (22:32)
[2017-02-24] MEDS: traMADol 50 MG TAB PO PRN (22:33)
[2017-02-25] MEDS: HYDROCODONE/APAP 5/325 TAB PO PRN ×4 (00:35→22:22)
[2017-02-25] MEDS ORDERED: AMIODARONE HCL 540 MG in D5W 300 ML IV ONE (01:00)
[2017-02-25 04:59] LABS: HEMATOCRIT 28.8 % (38.0-47.0); HEMOGLOBIN 9.7 g/dL (12.6-16.3)
[2017-02-25 05:00] LABS: INR 2.78 (0.83-1.16); PROTIME(PATIENT) 29.7 SEC (12.0-15.0)
[2017-02-25 06:21] LABS: POTASSIUM 4.6 mEq/L (3.5-5.2)
--- NOTE | 2017-02-25 07:50 | SOAPPROG ---
SOAP Progress Note Assessment/Plan: POD#8: MVR#29 Dickey Magna bovine pericardial bioprosthesis, AtriClip ligation left atrial appendage POD#4: Dual chamber PPM implantation Severe MR s/p MV replacement - BB not started d/t hypotension - continue Florinef for ?adrenal insufficiency - Antithrombotic prophylaxis with ASA and Coumadin x 3 months - target INR 2-3 - Coumadin Clinic enroll in progress - Continue Lasix - +5 kg since surgery with 2+ LE edema Post-operative sinus node dysfunction s/p PPM placement - Stable Post-operative paroxysmal atrial fibrillation with RVR - Continue amiodarone - transition gtt to PO today Acute blood loss anemia - Stable Disposition - Home Wednesday Subjective: Vomited this morning. Had some pain at pacer site. Denies SOB. Objective: Vital Signs Temp Pulse Resp BP Pulse Ox 36.3 C 67 16 96/67 L 99 02/25/17 04:00 02/25/17 04:00 02/25/17 04:00 02/25/17 04:00 02/25/17 04:00 Laboratory Results 02/25/17 03:59 02/25/17 03:59 02/24/17 02/25/17 02/26/17 05:59 05:59 05:59 Intake Total 1500 1725 Output Total 3100 3260 Balance -1600 -1535 PT 29.7 SEC (12.0-15.0) H 02/25/17 03:59 INR 2.78 (0.83-1.16) H 02/25/17 03:59 Physical Exam - Physical Exam General Appearance: WD/WN, alert, no apparent distress EENT: No scleral icterus (R), No scleral icterus (L) Neck: normal inspection Respiratory: No respiratory distress Cardiac/Chest: regular rate, rhythm, tachycardia, irregularly irregular Abdomen: non-tender, soft, No distended Skin: normal color, warm/dry Extremities: pedal edema ICD10 Worksheet Patient Problems: Problems Problem Status Onset Acute blood loss anemia Acute S/P mitral valve replacement with bioprosthetic valve Acute Mitral valve regurgitation Acute Near syncope Acute
[2017-02-25] MEDS ORDERED: ONDANSETRON 4 MG/2 ML VIAL ONE (08:32)
[2017-02-25] MEDS: FLUDROCORTISONE ACETATE 0.1 MG TAB PO SCH (08:42)
[2017-02-25] MEDS: buPROPion XL 150 MG TAB PO SCH (08:43)
[2017-02-25] MEDS: CHOLECALCIFEROL VIT D3 1,000 UNITS TAB PO SCH (08:43)
[2017-02-25] MEDS: FUROSEMIDE 40 MG/4 ML VIAL IVP SCH ×2 (08:43→16:44)
[2017-02-25] MEDS: PANTOPRAZOLE SODIUM 40 MG TAB PO SCH (08:43)
[2017-02-25] MEDS: ASPIRIN 81 MG CHEWABLE TAB PO SCH (08:43)
[2017-02-25] MEDS: POTASSIUM CL 20 MEQ TAB PO SCH ×2 (08:44→21:08)
[2017-02-25] MEDS ORDERED: ONDANSETRON 4 MG/2 ML VIAL IVP PRN (09:27)
[2017-02-25] MEDS ORDERED: WARFARIN SODIUM 2 MG TAB PO ONE (16:00)
[2017-02-25] MEDS: AMIODARONE HCL 200 MG TAB PO SCH (21:08)
[2017-02-25] MEDS: SENNOSIDES/DOCUSATE SODIUM TAB PO PRN (21:09)
[2017-02-26 04:52] LABS: INR 2.75 (0.83-1.16); PROTIME(PATIENT) 29.4 SEC (12.0-15.0)
[2017-02-26 05:03] LABS: POTASSIUM 4.5 mEq/L (3.5-5.2)
[2017-02-26 07:48] VITALS: O2SAT 94
--- NOTE | 2017-02-26 08:00 | SOAPPROG ---
SOAP Progress Note Assessment/Plan: POD#9: MVR#29 Dickey Magna bovine pericardial bioprosthesis, AtriClip ligation left atrial appendage POD#5: Dual chamber PPM implantation Severe MR s/p MV replacement - BB not started d/t hypotension - continue Florinef for ?adrenal insufficiency - Antithrombotic prophylaxis with ASA and Coumadin x 3 months - target INR 2-3 - Coumadin Clinic appt for Wednesday - Continue Lasix - +5 kg since surgery with 2+ LE edema Post-operative sinus node dysfunction s/p PPM placement - Stable Post-operative paroxysmal atrial fibrillation with RVR - Continue amiodarone Acute blood loss anemia - Stable Disposition - Home Today Subjective: Denies N/V. Feels great and ready to go home. Objective: Vital Signs Temp Pulse Resp BP Pulse Ox 36.7 C 66 18 106/56 L 94 02/26/17 07:48 02/26/17 07:48 02/26/17 07:48 02/26/17 07:48 02/26/17 07:48 Laboratory Results 02/25/17 03:59 02/26/17 03:51 02/25/17 02/26/17 02/27/17 05:59 05:59 05:59 Intake Total 1725 1390 Output Total 3260 1500 Balance -1535 -110 PT 29.4 SEC (12.0-15.0) H 02/26/17 03:51 INR 2.75 (0.83-1.16) H 02/26/17 03:51 Physical Exam - Physical Exam General Appearance: WD/WN, alert, no apparent distress EENT: No scleral icterus (R), No scleral icterus (L) Neck: normal inspection Respiratory: No respiratory distress Cardiac/Chest: other (AP) Abdomen: non-tender, soft, No distended Skin: normal color, warm/dry Extremities: pedal edema Neuro/Psych: no motor/sensory deficits, alert, normal mood/affect, oriented x 3 ICD10 Worksheet Patient Problems: Problems Problem Status Onset Acute blood loss anemia Acute S/P mitral valve replacement with bioprosthetic valve Acute Mitral valve regurgitation Acute Near syncope Acute
[2017-02-26] MEDS: buPROPion XL 150 MG TAB PO SCH (08:50)
[2017-02-26] MEDS: FUROSEMIDE 40 MG/4 ML VIAL IVP SCH (08:50)
[2017-02-26] MEDS: CHOLECALCIFEROL VIT D3 1,000 UNITS TAB PO SCH (08:50)
[2017-02-26] MEDS: AMIODARONE HCL 200 MG TAB PO SCH (08:50)
[2017-02-26] MEDS: FLUDROCORTISONE ACETATE 0.1 MG TAB PO SCH (08:51)
[2017-02-26] MEDS: ASPIRIN 81 MG CHEWABLE TAB PO SCH (08:51)
[2017-02-26] MEDS: POTASSIUM CL 20 MEQ TAB PO SCH (08:51)
[2017-02-26] MEDS: PANTOPRAZOLE SODIUM 40 MG TAB PO SCH (08:51)
[2017-02-26] MEDS ORDERED: BISACODYL 10 MG SUPP PR ONE (09:01)
[2017-02-26 11:17] VITALS: BP 93/58; PULSE 69; RESP 16; TEMP 98.2
--- NOTE | 2017-02-26 14:44 | PDDCSUM ---
Discharge Summary Discharge Summary: ADMISSION DATE: 02/17/17 DISCHARGE DATE: 02/26/17 ADMISSION DX: 1. Severe mitral valve insufficiency DISCHARGE DX: 1. Severe mitral valve insufficiency 2. Acute blood loss anemia 3. Hypotension 4. Sinus node dysfunction 5. Paroxysmal atrial fibrillation PROCEDURES 02/17/17, Nehemiah Siddiqui: 1. Mitral valve replacement with #29 Magna bioprothesis with chordal sparing 2. AtriClip left atrial appendage HOSPITAL COURSE BY PROBLEM LIST 1. Severe MV insufficiency - s/p MV replacement with post-op ECHO revealing well -functioning valve and normal ventricular function. Coumadin started for INR goal 2-3, 3 month duration. 2. Hypotension with acute blood loss anemia - 2 units PRBCs transfused with adequate response in HCT. Fludrocortisone started for persistent hypotension. 3. Sinus node dysfunction - s/p dual-chambered PPM placement. 4. Paroxysmal atrial fibrillation - conversion to SR with amiodarone. Coumadin as per MVR, possibly for longer duration depending on rhythm. CONDITION Good DISPOSITION Home, self-care ACTIVITY Pt was instructed on sternal precautions, activity limitations, and which problems to call [facility] with. Please see Discharge Plan in chart for specifics. D/C MEDICATIONS 1. Betamethasone Jade 0.1% [Betamethasone Jade 0.1% (*)] 1 nnamdi TP BID 2. Cholecalciferol Vit D3 [Vitamin D3 (*)] 1,000 units PO DAILY 3. Clindamycin Phosphate [Clindamycin Top Solution] 1 nnamdi TP BID 4. Herbals/Supplements -Info Only 1 ea PO DAILY 5. buPROPion XL [Wellbutrin 150mg XL] 150 mg PO DAILY 6. Meclizine HCl [Meclizine HCl 25 mg (RX,OTC)] 25 mg PO Q6H PRN 7. Ondansetron Odt [Zofran Odt 4 mg (*)] 4 mg PO Q6H PRN New: 1. Acetaminophen [Tylenol 325mg (*)] 325 - 650 mg PO Q4HRS PRN 2. Amiodarone HCl 200 mg PO BID #60 tablet 3. Amiodarone HCl 400 mg PO BID #14 tablet for one week 4. Aspirin [Aspirin 81mg (*)] 81 mg PO DAILY 5. Fludrocortisone Acetate [Florinef] 0.1 mg PO DAILY for one month 6. Furosemide [Lasix] 40 mg PO BID #60 7. Hydrocodone/APAP 5/325 [[place] 5/325 (*)] 1 tab PO Q6H PRN #30 8. Potassium Cl [Klor-Con 20 meq (*)] 20 meq PO BID #60 9. Warfarin Sodium [Coumadin 2MG (*)] 2 mg PO DAILY16 #30 - for INR goal 2-3. PENDING STUDIES/LABS 1. INR on 03/01/17 [facility] clinic 2. CXR prior to surgical follow-up F/U APPOINTMENTS 1. Nehemiah Siddiqui - 03/02/17, 10:45 AM
== END 2017-02-26 15:39 | disposition home or self-care (01) | DRG 220 ==
LOC: F2N 05:38 → F2W 02-23 14:23
PROVIDERS: ADMIT Thoracic Surgery (Cardiothoracic Vascular Surgery); ATTEND Thoracic Surgery (Cardiothoracic Vascular Surgery)
PROC: 02RG08Z Replacement of Mitral Valve with Zooplastic Tissue, Open Approach (ICD-10-PCS; principal; 2017-02-17 07:15)
PROC: 02L70CK Occlusion of Left Atrial Appendage with Extraluminal Device, Open Approach (ICD-10-PCS; principal; 2017-02-17 07:15)
PROC: 5A1221Z Performance of Cardiac Output, Continuous (ICD-10-PCS; principal; 2017-02-17 07:15)
PROC: 0JH606Z Insertion of Pacemaker, Dual Chamber into Chest Subcutaneous Tissue and Fascia, Open Approach (ICD-10-PCS; 2017-02-17 07:15)
PROC: 02HK3JZ Insertion of Pacemaker Lead into Right Ventricle, Percutaneous Approach (ICD-10-PCS; 2017-02-17 07:15)
PROC: 02H63JZ Insertion of Pacemaker Lead into Right Atrium, Percutaneous Approach (ICD-10-PCS; 2017-02-17 07:15)
DX: I34.0 Nonrheumatic mitral (valve) insufficiency (principal); D62 Acute posthemorrhagic anemia; I95.9 Hypotension, unspecified; I49.5 Sick sinus syndrome; I48.0 Paroxysmal atrial fibrillation; I27.2 Other secondary pulmonary hypertension
CPT/HCPCS: 82947-QW; 92610-GN; 97116-GP; 97161-GP; 97166-GO; 97530-GP; 97535-GO; C1785; C1898; J0153; J0282; J0690; J1170; J1265; J1644; J1815; J1885; J1940; J2001; J2150; J2250; J2260; J2370; J2405; J2704; J2720; J2765; J2930; J3010; J7060; P9016; P9041; Q9967

== ENCOUNTER 2017-03-02 00:42 | Emergency (ER) | payer OTHER ==
[2017-03-02] MEDS ORDERED: OXYMETAZOLINE 30 ML NASAL SPRAY ONE (01:05)
[2017-03-02] MEDS ORDERED: SILVER NITRATE APPLICATOR 1 APPL TP ONE ×3 (01:05→02:37)
[2017-03-02] MEDS ORDERED: OXYMETAZOLINE 30 ML NASAL SPRAY EACHNARE ONE (01:14)
[2017-03-02] MEDS ORDERED: COCAINE HCL 4% 4 ML BTL TP ONE ×3 (01:14→02:17)
--- NOTE | 2017-03-02 01:21 | EDPHY ---
H & P Stated Complaint: Epistaxis HPI/ROS: CHIEF COMPLAINT: Epistaxis HISTORY OF PRESENT ILLNESS: The patient is a 66-year-old female who comes to the emergency department complaining of epistaxis from the right nares. She states that it started around 10:00 p.m. and is been intermittent and moderate. She also has sinus congestion. She has not been sick recently. She denies any trauma. She is currently on Coumadin stay 2 weeks status post mitral valve replacement. Her INR was checked yesterday and is 2.1. She has not had any trouble breathing. She called the nurse practitioner for the thoracic surgeon who suggested she place cotton balls in her nose. REVIEW OF SYSTEMS: Constitutional: denies: chills, fever, recent illness, recent injury EENTM: See HPI Respiratory: denies: cough, shortness of breath Cardiac: denies: chest pain, irregular heart rate, lightheadedness, palpitations Gastrointestinal/Abdominal: denies: abdominal pain, diarrhea, nausea, vomiting, blood streaked stools Genitourinary: denies: dysuria, frequency, hematuria, pain Musculoskeletal: denies: joint pain, muscle pain Skin: denies: lesions, rash, jaundice, bruising Neurological: denies: headache, numbness, paresthesia, tingling, dizziness, weakness Hematologic/Lymphatic: denies: blood clots, easy bleeding, easy bruising Immunologic/allergic: denies: HIV/AIDS, transplant EXAM: GENERAL: Well-appearing, well-nourished and in no acute distress. HEAD: Atraumatic, normocephalic. EYES: Pupils equal round and reactive to light, extraocular movements intact, sclera anicteric, conjunctiva are normal. ENT: Epistaxis right nares, oropharynx clear without exudates. Moist mucous membranes. NECK: Normal range of motion, supple without lymphadenopathy or JVD. LUNGS: Breath sounds clear to auscultation bilaterally and equal. No wheezes rales or rhonchi. HEART: Regular rate and rhythm without murmurs, rubs or gallops. ABDOMEN: Soft, nontender, normoactive bowel sounds. No guarding, no rebound. No masses appreciated. BACK: No CVA tenderness, no spinal tenderness, step-offs or deformities EXTREMITIES: Normal range of motion, no pitting or edema. No clubbing or cyanosis. NEUROLOGICAL: Cranial nerves II through XII grossly intact. Normal speech, normal gait. 5/5 strength, normal movement in all extremities, normal sensation PSYCH: Normal mood, normal affect. SKIN: Warm, dry, normal turgor, no visible rashes or lesions. Source: Patient Exam Limitations: No limitations - Medical/Surgical History Hx Asthma: No Hx Chronic Respiratory Disease: No Hx Diabetes: No Hx Cardiac Disease: Yes Hx Renal Disease: No Hx Cirrhosis: No Hx Alcoholism: No Hx HIV/AIDS: No Hx Splenectomy or Spleen Trauma: No Other PMH: foot surgery for arthritis, depression, heart valve replacement and pacemaker placement - Family History Significant Family History: No pertinent family hx - Social History Smoking Status: Former smoker Alcohol Use: Sober Constitutional: Initial Vital Signs Temperature (C) 36.3 C 03/02/17 00:43 Heart Rate 75 03/02/17 00:43 Respiratory Rate 18 03/02/17 00:43 Blood Pressure 116/61 03/02/17 00:43 O2 Sat (%) 93 03/02/17 00:43 O2 Delivery Mode Room Air Allergies/Adverse Reactions: sulfamethoxazole [From Bactrim] Allergy (Verified 03/02/17 00:47) Other-Enter Comments trimethoprim [From Bactrim] Allergy (Verified 03/02/17 00:47) Other-Enter Comments metal Allergy (Uncoded 02/16/17 11:18) Home Medications: Medication Instructions Recorded Betamethasone Jade 0.1% 1 nnamdi TP BID 01/29/17 [Betamethasone Jade 0.1% (*)] Cholecalciferol Vit D3 [Vitamin D3 1,000 units PO DAILY 01/29/17 (*)] Herbals/Supplements -Info Only 1 ea PO DAILY 01/29/17 buPROPion XL [Wellbutrin 150mg XL] 150 mg PO DAILY 01/29/17 Meclizine HCl [Meclizine HCl 25 mg 25 mg PO Q6H PRN #30 tab 01/30/17 (RX,OTC)] Ondansetron Odt [Zofran Odt 4 mg 4 mg PO Q6H PRN #30 tab 01/30/17 (*)] Acetaminophen [Tylenol 325mg (*)] 325 - 650 mg PO Q4HRS PRN #0 tab 02/26/17 Amiodarone HCl 200 mg PO BID #60 tablet 02/26/17 Amiodarone HCl [Pacerone] 400 mg PO BID #14 tablet 02/26/17 Aspirin [Aspirin 81mg (*)] 81 mg PO DAILY #30 tab.chew 02/26/17 Fludrocortisone Acetate [Florinef] 0.1 mg PO DAILY #30 tab 02/26/17 Furosemide [Lasix] 40 mg PO BID #60 tab 02/26/17 Hydrocodone/APAP 5/325 [[place] 1 tab PO Q6H PRN #30 tab 02/26/17 5/325 (*)] Potassium Cl [Klor-Con 20 meq (*)] 20 meq PO BID #60 tab 02/26/17 Warfarin Sodium [Coumadin 2MG (*)] 2 mg PO DAILY16 #30 tab 02/26/17 Medical Decision Making ED Course/Re-evaluation: Patient has bleeding from the anterior septum of her right nares. She also has sinus congestion. She was given Afrin and a clamp. This slowed her bleeding significantly. Then placed a cotton gauze soaked in cocaine. 2:15 a.m. the patient's nose bleeding had stopped temporarily however on repeat examination found that she has a cotton ball up inside of her sinuses. I removed this in her bleeding began again. 3:30 a.m. the patient's bleeding is controlled after Merocel packing. Bleeding was not satisfactorily controlled with silver nitrate cauterization. Also noticed another cotton ball in her left nares that was removed. She placed this at home as well. We will leave the packing in place for 48 hours. She is currently on antibiotics because of a skin infection from her IV. She will follow up with ENT. she will stay on the Coumadin because of her recent valve replacement. Differential Diagnosis: Partial list of the Differential diagnosis considered include but were not limited to; Epistaxis, coagulopathy, Coumadin toxicity and although unlikely based on the history and physical exam, I also considered infection, trauma. - Data Points Medications Given: Discontinued Medications Cocaine HCl (Cocaine Hcl) 1 nnamdi TP EDNOW ONE Stop: 03/02/17 01:15 Last Admin: 03/02/17 02:00 Dose: 1 nnamdi Cocaine HCl (Cocaine Hcl) 1 nnamdi TP EDNOW ONE Stop: 03/02/17 02:18 Last Admin: 03/02/17 02:39 Dose: 1 nnamdi Oxymetazoline HCl (Afrin Nasal [place]) 2 sprays EACHNARE EDNOW ONE Stop: 03/02/17 01:15 Last Admin: 03/02/17 01:16 Dose: 2 spray Silver Nitrate/Potassium Nitrate (Silver Nitrate Applicator) 1 each TP EDNOW ONE Stop: 03/02/17 01:15 Last Admin: 03/02/17 02:00 Dose: 1 each Silver Nitrate/Potassium Nitrate (Silver Nitrate Applicator) 1 each TP EDNOW ONE Stop: 03/02/17 02:38 Last Admin: 03/02/17 03:05 Dose: 1 each Departure - Departure Disposition: Home, Routine, Self-Care Clinical Impression: Epistaxis Condition: Good Instructions: Nosebleed (ED) Referrals: Anum Olmstead MD [Primary Care Provider] - As per Instructions Emeterio Fair MD [Medical Doctor] - As per Instructions
[2017-03-02 03:53] VITALS: BP 118/61; PULSE 72; RESP 16; TEMP 97.7; O2SAT 95
== END 2017-03-02 03:53 | disposition home or self-care (01) ==
PROC: 2Y41X5Z Packing of Nasal Region using Packing Material (ICD-10-PCS; principal; 2017-03-02)
DX: R04.0 Epistaxis (principal); Z79.01 Long term (current) use of anticoagulants; Z79.82 Long term (current) use of aspirin; Z87.891 Personal history of nicotine dependence; Z95.0 Presence of cardiac pacemaker

== ENCOUNTER → 2017-03-02 | Outpatient (CLI) | payer OTHER | LOC: FIMAGING 10:18 → EDSTATUS 13:03 | PROVIDERS: ATTEND Physician Assistant Surgical | DX: Z09 Encounter for follow-up examination after completed treatment for conditions other than malignant neoplasm (principal); J90 Pleural effusion, not elsewhere classified; Z95.1 Presence of aortocoronary bypass graft; Z98.890 Other specified postprocedural states; I51.7 Cardiomegaly; Z95.2 Presence of prosthetic heart valve; Z95.0 Presence of cardiac pacemaker ==

== ENCOUNTER 2017-05-29 11:12 | Emergency (ER) | payer OTHER ==
[2017-05-29] MEDS ORDERED: DIAZEPAM 10 MG/2 ML SYR IM ONE (11:35)
--- NOTE | 2017-05-29 12:12 | EDPHY ---
H & P Stated Complaint: saw chiropractor in apr still chronic back pain Time Seen by Provider: 05/29/17 12:08 HPI/ROS: HPI: This is a 66-year-old female who presents with Chief Complaint: Low back pain Location: Low back pain Quality: Aching Duration: 1 week Signs and Symptoms:+ radiation down back of right leg, no incontinence, no dysuria, no blood in urine, no weakness, no numbness Timing: Gradual onset Severity: Moderate Context: Patient reports that she has been in cardiac rehab doing more physical activity than she is used to. Has noted some bilateral lower back discomfort over the last several weeks. She has really been pushing herself for the last week and rehab and her pain has worsened. Now she is noting some radiculopathy from her lower back down the posterior portion of right leg. No history kidney stones. Denies urinary symptoms. Patient denies any injury or prior history of chronic low back. No longer taking Coumadin. Has appointment scheduled with Orthopedics on June 17. Modifying Factors: Went to the chiropractor with transient relief Comment: ROS: Constitutional: No fever, no chills, no weight loss Eyes: No blurred vision Respiratory: No shortness of breath, no cough Cardiovascular: No chest pain Gastrointestinal: No nausea, no vomiting no diarrhea Genitourinary: No dysuria Extremities: No myalgias Neurologic: No weakness, no numbness Skin: No rashes Hematologic: No bruising, no bleeding MEDICAL/SURGICAL HISTORY: CAD, severe mitral insufficiency, anemia, sinus node dysfunction, paroxysmal atrial fib Source: Patient, Family Exam Limitations: No limitations - Personal History Current Tetanus/Diphtheria Vaccine: Yes Current Tetanus Diphtheria and Acellular Pertussis (TDAP): Yes - Medical/Surgical History Hx Asthma: No Hx Chronic Respiratory Disease: No Hx Diabetes: No Hx Cardiac Disease: Yes Hx Renal Disease: No Hx Cirrhosis: No Hx Alcoholism: No Hx HIV/AIDS: No Hx Splenectomy or Spleen Trauma: No Other PMH: foot surgery for arthritis, depression, heart valve replacement and pacemaker placement - Social History Smoking Status: Former smoker - Physical Exam Exam: CONSTITUTIONAL: Adult white female who appears younger than stated age, awake and alert, moderate distress HEENT: Atraumatic and normocephalic, PERRL, EOMI. Tympanic membranes clear. . Oropharynx clear, no exudate and moist pink mucosa. Airway patent. No lymphadenopathy. No meningismus. Cardiovascular: Normal S1/S2, regular rate, regular rhythm, without murmur rub or gallop. PULMONARY/CHEST: Symmetrical and nontender. Clear to auscultation bilaterally Good air movement. No accessory muscle usage. ABDOMEN: Soft, nondistended, nontender, no rebound, no guarding, no peritoneal signs, no masses or organomegaly. No CVAT. EXTREMITIES: 2/2 pulses, no deformities, no clubbing, no cyanosis or edema. BACK: Bilateral reproducible moderate paraspinous muscle tenderness; positive paraspinous spasm; deep tendon reflexes 2/2; fairly good motion of flexion extension and rotation. Ambulatory without deficits in able to walk on heels and toes. Light touch sensation intact. NEUROLOGICAL: no focal neuro deficits. GCS 15. SKIN: Warm and dry, no erythema. no rash. Good capillary refill. Constitutional: Initial Vital Signs Temperature (C) 36.5 C 05/29/17 11:15 Heart Rate 84 05/29/17 11:15 Respiratory Rate 16 05/29/17 11:15 Blood Pressure 152/78 H 05/29/17 11:15 O2 Sat (%) 97 05/29/17 11:15 O2 Delivery Mode Room Air Allergies/Adverse Reactions: sulfamethoxazole [From Bactrim] Allergy (Verified 03/02/17 00:47) Other-Enter Comments trimethoprim [From Bactrim] Allergy (Verified 03/02/17 00:47) Other-Enter Comments metal Allergy (Uncoded 02/16/17 11:18) Home Medications: Medication Instructions Recorded Betamethasone Jade 0.1% 1 nnamdi TP BID 01/29/17 [Betamethasone Jade 0.1% (*)] Cholecalciferol Vit D3 [Vitamin D3 1,000 units PO DAILY 01/29/17 (*)] Herbals/Supplements -Info Only 1 ea PO DAILY 01/29/17 buPROPion XL [Wellbutrin 150mg XL] 150 mg PO DAILY 01/29/17 Meclizine HCl [Meclizine HCl 25 mg 25 mg PO Q6H PRN #30 tab 01/30/17 (RX,OTC)] Ondansetron Odt [Zofran Odt 4 mg 4 mg PO Q6H PRN #30 tab 01/30/17 (*)] Acetaminophen [Tylenol 325mg (*)] 325 - 650 mg PO Q4HRS PRN #0 tab 02/26/17 Amiodarone HCl 200 mg PO BID #60 tablet 02/26/17 Amiodarone HCl [Pacerone] 400 mg PO BID #14 tablet 02/26/17 Aspirin [Aspirin 81mg (*)] 81 mg PO DAILY #30 tab.chew 02/26/17 Fludrocortisone Acetate [Florinef] 0.1 mg PO DAILY #30 tab 02/26/17 Furosemide [Lasix] 40 mg PO BID #60 tab 02/26/17 Hydrocodone/APAP 5/325 [[place] 1 tab PO Q6H PRN #30 tab 02/26/17 5/325 (*)] Potassium Cl [Klor-Con 20 meq (*)] 20 meq PO BID #60 tab 02/26/17 Warfarin Sodium [Coumadin 2MG (*)] 2 mg PO DAILY16 #30 tab 02/26/17 Metaxalone [Skelaxin 800 mg (*)] 800 mg PO TID PRN #12 tab 05/29/17 methylPREDNISolone [Medrol Dose 1 each PO AD #0 ea 05/29/17 Saul] Medical Decision Making ED Course/Re-evaluation: Lumbar spine x-ray my read shows moderate constipation; L5-S1 narrowing. No signs of neurovascular compromise/cauda equina syndrome/saddle anesthesia Complete relief of pain with 1 dose of IV Valium given for muscle spasms Patient had already has an appoint with Orthopedics for the same complaint in several weeks Will give her Medrol Dosepak and muscle relaxers for the interim Differential Diagnosis: Back pain including but not limited to muscular pain, herniated disc, spine fracture, intra-abdominal causes and urinary tract infection. - Data Points Medications Given: Discontinued Medications Diazepam (Valium Injection) 5 mg IM EDNOW ONE Stop: 05/29/17 11:36 Last Admin: 05/29/17 11:47 Dose: 5 mg Departure - Departure Disposition: Home, Routine, Self-Care Clinical Impression: Lumbar radiculopathy, acute Lumbar strain Qualifiers: Encounter type: initial encounter Qualified Code(s): S39.012A - Strain of muscle, fascia and tendon of lower back, initial encounter Condition: Good Instructions: Low Back Strain (ED), Lumbar Radiculopathy (ED) Additional Instructions: Take Medrol Dosepak as indicated as well as muscle relaxers three times daily as needed. Keep follow-up appointment with Orthopedics for further evaluation. His symptoms persist would benefit from MRI lumbar spine outpatient. Referrals: Anum Olmstead MD [Primary Care Provider] - As per Instructions Prescriptions: Metaxalone [Skelaxin 800 mg (*)] 800 mg PO TID PRN #12 tab PRN Reason: Spasms methylPREDNISolone [Medrol Dose Saul] 1 each PO AD #0 ea
[2017-05-29 12:26] VITALS: BP 143/74; PULSE 82; RESP 20; TEMP 98.6; O2SAT 94
== END 2017-05-29 12:32 | disposition home or self-care (01) ==
DX: S39.012A Strain of muscle, fascia and tendon of lower back, initial encounter (principal); X58.XXXA Exposure to other specified factors, initial encounter; M54.16 Radiculopathy, lumbar region; Z95.0 Presence of cardiac pacemaker; Z87.891 Personal history of nicotine dependence

== ENCOUNTER → 2017-09-03 | Outpatient (CLI) | payer OTHER | LOC: BRMIMAGING 08:42 | PROVIDERS: ATTEND Internal Medicine Endocrinology, Diabetes & Metabolism | DX: Z13.820 Encounter for screening for osteoporosis (principal); M81.0 Age-related osteoporosis without current pathological fracture; M47.812 Spondylosis without myelopathy or radiculopathy, cervical region; M43.12 Spondylolisthesis, cervical region; Z78.0 Asymptomatic menopausal state | CPT/HCPCS: 72040-PO ==

== ENCOUNTER 2017-09-07 11:26 | Emergency (ER) | payer OTHER ==
[2017-09-07 11:42] VITALS: PULSE 78; RESP 18; TEMP 98
--- NOTE | 2017-09-07 12:49 | EDPHY ---
H & P Time Seen by Provider: 09/07/17 12:15 HPI/ROS: This patient [place] mechanical fall on the park at 10:15 a.m. this morning. She explains that she was looking in the distance and stepped off the edge of the sidewalk falling and inverting her right ankle with immediate lateral pain. She also reports upper lateral rib pain since the fall worsens with movements of her torso. She reports the ankle pain as moderate intensity and rib pain is moderate intensity and denies any other injuries. Her drove her here by private vehicle for further evaluation. ROS: Neuro: No head injury and no headache. Musculoskeletal: No neck or back injury. No other extremity injuries than what is mentioned in HPI. Patient is unable to bear weight on the right ankle since her injury. Integumentary: No lacerations abrasions 5 point ROS is otherwise negative. Smoking Status: Former smoker Physical Exam: Physical Exam Vital signs are normal. General: No acute distress HEENT: Atraumatic. Neck: Nontender Back: Nontender Eyes: Pupils equal and react to light. Extraocular motions are intact. Lungs: Clear to auscultation bilaterally. No respiratory distress. Moderate right lateral 3rd 4th rib region tenderness. Cardiac: Brisk capillary refill is intact throughout. Pulses are 2+ and symmetric in the affected extremity. Skin: No rash or pallor. Extremities: Atraumatic normal except for right ankle Right ankle: Patient has moderate malleolar swelling and tenderness. No medial tenderness. No Achilles tenderness. No foot swelling or tenderness. Neuro: Alert with no sensorimotor deficits in the affected extremity. Initial differential diagnosis: Rib contusion versus fracture, ankle fracture versus sprain Constitutional: Initial Vital Signs Temperature (C) 36.6 C 09/07/17 11:38 Heart Rate 78 09/07/17 11:38 Respiratory Rate 18 09/07/17 11:38 Blood Pressure 128/80 H 09/07/17 11:38 O2 Sat (%) 93 09/07/17 11:38 O2 Delivery Mode Room Air Allergies/Adverse Reactions: sulfamethoxazole [From Bactrim] Allergy (Verified 03/02/17 00:47) Other-Enter Comments trimethoprim [From Bactrim] Allergy (Verified 03/02/17 00:47) Other-Enter Comments metal Allergy (Uncoded 02/16/17 11:18) Home Medications: Medication Instructions Recorded Betamethasone Jade 0.1% 1 nnamdi TP BID 01/29/17 [Betamethasone Jade 0.1% (*)] Cholecalciferol Vit D3 [Vitamin D3 1,000 units PO DAILY 01/29/17 (*)] Herbals/Supplements -Info Only 1 ea PO DAILY 01/29/17 buPROPion XL [Wellbutrin 150mg XL] 150 mg PO DAILY 01/29/17 Meclizine HCl [Meclizine HCl 25 mg 25 mg PO Q6H PRN #30 tab 01/30/17 (RX,OTC)] Ondansetron Odt [Zofran Odt 4 mg 4 mg PO Q6H PRN #30 tab 01/30/17 (*)] Acetaminophen [Tylenol 325mg (*)] 325 - 650 mg PO Q4HRS PRN #0 tab 02/26/17 Amiodarone HCl 200 mg PO BID #60 tablet 02/26/17 Amiodarone HCl [Pacerone] 400 mg PO BID #14 tablet 02/26/17 Aspirin [Aspirin 81mg (*)] 81 mg PO DAILY #30 tab.chew 02/26/17 Fludrocortisone Acetate [Florinef] 0.1 mg PO DAILY #30 tab 02/26/17 Furosemide [Lasix] 40 mg PO BID #60 tab 02/26/17 Hydrocodone/APAP 5/325 [[place] 1 tab PO Q6H PRN #30 tab 02/26/17 5/325 (*)] Potassium Cl [Klor-Con 20 meq (*)] 20 meq PO BID #60 tab 02/26/17 Warfarin Sodium [Coumadin 2MG (*)] 2 mg PO DAILY16 #30 tab 02/26/17 Metaxalone [Skelaxin 800 mg (*)] 800 mg PO TID PRN #12 tab 05/29/17 methylPREDNISolone [Medrol Dose 1 each PO AD #0 ea 05/29/17 Saul] traMADol [Ultram 50 mg (*)] 50 - 100 mg PO Q4 PRN #20 tab 09/07/17 MDM/Departure - MDM Imaging Results: [facility] Ankle x-ray: Nondisplaced lateral malleolus fracture by my interpretation Chest x-ray: I initially read this as 3rd rib fracture. Jose Rose, radiologist called and reports actually a 4th rib diastasis. No pneumothorax, pulmonary contusion or other abnormal findings. ED Course/Re-evaluation: Walker boot is applied. I counseled patient regarding her ankle fracture or. She is able to use crutches without difficulty. Will treat patient with ibuprofen, Tylenol and tramadol for pain control as needed. She will follow up with Orthopedics regarding her ankle injury. I also counseled regarding her rib injury. She is neurovascularly intact without concerning findings or evidence of other significant injuries. - Depart Disposition: Home, Routine, Self-Care Clinical Impression: Ankle fracture Qualifiers: Encounter type: initial encounter Fracture type: closed Laterality: right Qualified Code(s): S82.891A - Other fracture of right lower leg, initial encounter for closed fracture Rib fracture Qualifiers: Encounter type: initial encounter Rib fracture type: single rib Fracture type: closed Laterality: right Qualified Code(s): S22.31XA - Fracture of one rib, right side, initial encounter for closed fracture Condition: Good Instructions: Ankle Fracture (ED), Rib Fracture (ED) Additional Instructions: Diagnosis: Ankle fracture 2. 4th rib injury Plan: Ibuprofen and Tylenol for pain Tramadol in addition if needed for pain that prevents sleep. No driving, alcohol work on tramadol Walker boot whenever up and about Use crutches when your up and about and avoid putting weight on the ankle until further evaluation by Orthopedics. Return if he develops shortness of breath, unbearable pain despite treatment plan or other concerns. Referrals: Anum Olmstead MD [Primary Care Provider] - As per Instructions Armando Painter MD [Medical Doctor] - As per Instructions
[2017-09-07 13:23] VITALS: BP 135/62; O2SAT 97
== END 2017-09-07 13:22 | disposition home or self-care (01) ==
LOC: CED 11:26
DX: S22.31XA Fracture of one rib, right side, initial encounter for closed fracture (principal); S82.64XA Nondisplaced fracture of lateral malleolus of right fibula, initial encounter for closed fracture; Z79.01 Long term (current) use of anticoagulants; Z79.82 Long term (current) use of aspirin; Z87.891 Personal history of nicotine dependence; W01.0XXA Fall on same level from slipping, tripping and stumbling without subsequent striking against object, initial encounter; Y92.830 Public park as the place of occurrence of the external cause
CPT/HCPCS: 71020-PO; 73610-PO; L4386

== ENCOUNTER → 2017-11-16 | Outpatient (CLI) | payer OTHER | LOC: FIMAGING 07:30 | PROVIDERS: ATTEND Surgery | DX: E07.9 Disorder of thyroid, unspecified (principal) | CPT/HCPCS: 78070; A9500 ==

== ENCOUNTER 2018-01-10 05:42 | Observation (INO) | payer OTHER ==
[2018-01-10] MEDS ORDERED: LR 1,000 ML IV ONE (05:52)
[2018-01-10] MEDS ORDERED: LIDOCAINE 1% 2 ML INJ ID PRN (05:52)
[2018-01-10] MEDS ORDERED: ceFAZolin 2 GM/SWFI 2 GM/20 ML SYR IVP ONE (06:32)
--- NOTE | 2018-01-10 06:33 | PDHPUP ---
History & Physical Update H&P update statement: This history and physical update is based on an assessment of the patient which was completed after admission or registration (within 24 hours), but prior to the surgery/procedure. H&P update: H&P reviewed & patient examined, no change in patient's condition since H&P completed
[2018-01-10] MEDS ORDERED: MIDAZOLAM 2 MG/2 ML VIAL IVP ONE (07:00)
[2018-01-10] MEDS ORDERED: SCOPOLAMINE HYDROBROMIDE 1 MG/3 DAYS PATCH TD ONE ×2 (07:00→07:15)
[2018-01-10] MEDS ORDERED: LIDOCAINE 1% 300 MG/30 ML SDV ONE (07:01)
[2018-01-10] MEDS ORDERED: BUPIVACAINE 0.25% 30 ML SDV ONE (07:01)
[2018-01-10] MEDS ORDERED: BUPIVACAINE 0.5% 30 ML SDV ONE (07:02)
--- NOTE | 2018-01-10 07:05 | PDANEPAE ---
ANE History of Present Illness hyperparathyroidism ANE Past Medical History - Cardiovascular History Hx Hypertension: No Hx Arrhythmias: Yes Hx Chest Pain: No Hx Coronary Artery / Peripheral Vascular Disease: No Hx CHF / Valvular Disease: Yes Hx Palpitations: No Cardiovascular History Comment: htn. PAF. hx of acute mitral regurgitation. hx of heart murmur. MVR with Chen 02/17/17. pacer placed 02/21/17. hypotension - Pulmonary History Hx COPD: No Hx Asthma/Reactive Airway Disease: No Hx Recent Upper Respiratory Infection: No Hx Oxygen in Use at Home: No Hx Sleep Apnea: No Sleep Apnea Screening Result - Last Documented: Negative - Neurologic History Hx Cerebrovascular Accident: No Hx Seizures: No Hx Dementia: No Neurologic History Comment: hx of eye migraines. occ back spasm - Endocrine History Hx Diabetes: No Hypothyroid: No Hyperthyroid: No Obesity: mild Endocrine History Comment: hyperparathyroidism - Renal History Hx Renal Disorders: No - Liver History Hx Hepatic Disorders: No - Neurological & Psychiatric Hx Hx Neurological and Psychiatric Disorders: Yes Neurological / Psychiatric History Comment: minor anxiety and depression - Cancer History Hx Cancer: No - Congenital Disorder History Hx Congenital Disorders: No - GI History GERD: severe Hx Gastrointestinal Disorders: Yes Gastrointestinal History Comment: hx of reflux. constipation. hiatal hernia - Other Health History Other Health History: eczema. wears glasses - Chronic Pain History Chronic Pain: No - Surgical History Prior Surgeries: pacer placed 02/21/17. MVR with Chen 02/17/17. 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 right toe surgery. left knee scope 07/2016 ANE Review of Systems Review of Systems: - Exercise capacity METS (RN): 4 METS - Pacemaker Pacemaker Type: Permanent Pacer/Defib Pacemaker Invisible Braces Orthodontist: [facility] Pacemaker Model: Assurity MRI 2272 Pacemaker Mode: DDDR Pacemaker Set Rate: 60 Date Pacemaker Last Checked: 11/08/17 ANE Patient History - Allergies Allergies/Adverse Reactions: morphine Allergy (Verified 12/17/17 11:39) doesn't do anything for me sulfamethoxazole [From Bactrim] Allergy (Verified 12/17/17 11:32) FLU-LIKE SXS, CHILLS, SOME BREATHING DIFFICULTY trimethoprim [From Bactrim] Allergy (Verified 12/17/17 11:32) FLU-LIKE SXS, CHILLS, SOME BREATHING DIFFICULTY metal Allergy (Uncoded 12/17/17 11:32) Rash - Home Medications Home Medications: Herbals/Supplements -Info Only 1 ea PO DAILY 01/29/17 [Last Taken 01/03/18] buPROPion XL [Wellbutrin 150mg XL] 01/29/17 [Last Taken 01/10/18 05:00] Aspirin [Aspirin 81mg (*)] 12/17/17 [Last Taken 12/31/17] Omeprazole 12/17/17 [Last Taken 01/10/18 05:00] - NPO status NPO Since - Liquids (Date): 01/09/18 NPO Since - Liquids (Time): 20:00 NPO Since - Solids (Date): 01/09/18 NPO Since - Solids (Time): 18:00 - Anes Hx Anes Hx: post operative nausea - Smoking Hx Smoking Status: Former smoker Marijuana use: No - Alcohol Use Alcohol Use: Occasionally - Family Anes Hx Family Anes Hx: none Family Hx Anesthesia Complications: none ANE Labs/Vital Signs - Vital Signs Blood Pressure: 105/68 Heart Rate: 76 Respiratory Rate: 16 O2 Sat (%): 94 Height: 172.72 cm Weight: 86.183 kg ANE Physical Exam - Airway Neck exam: FROM Mallampati Score: Class 1 Mouth exam: normal dental/mouth exam - Pulmonary Pulmonary: clear to auscultation (upper front veneer) - Cardiovascular Cardiovascular: regular rate and rhythym - ASA Status ASA Status: III ANE Anesthesia Plan Anesthesia Plan: general endotracheal anesthesia
[2018-01-10] MEDS ORDERED: PROPOFOL 200 MG/20 ML VIAL ONE (07:10)
[2018-01-10] MEDS ORDERED: fentaNYL 100 MCG/2 ML INJ ONE ×4 (07:10→10:45)
[2018-01-10] MEDS ORDERED: ROCURONIUM 50 MG/5 ML VIAL ONE (07:10)
[2018-01-10] MEDS ORDERED: DEXAMETHASONE 4 MG/ML VIAL ONE (07:10)
[2018-01-10] MEDS ORDERED: RANITIDINE 50 MG/2 ML VIAL ONE (07:11)
[2018-01-10] MEDS ORDERED: DEXAMETHASONE 4 MG/ML VIAL IVP PRN (08:19)
[2018-01-10] MEDS ORDERED: NALOXONE HCL 0.4 MG/ML INJ IVP PRN (08:19)
[2018-01-10] MEDS ORDERED: fentaNYL 100 MCG/2 ML INJ IVP PRN (08:19)
[2018-01-10] MEDS ORDERED: ACETAMINOPHEN 500 MG TAB PO PRN (08:19)
[2018-01-10] MEDS ORDERED: oxyCODONE IR 5 MG TAB PO PRN (08:19)
[2018-01-10] MEDS ORDERED: ONDANSETRON 4 MG/2 ML VIAL ONE (10:06)
[2018-01-10] MEDS ORDERED: NEOSTIGMINE METHYLSULFATE 3 MG/3 ML SYR ONE (10:09)
[2018-01-10] MEDS ORDERED: GLYCOPYRROLATE 0.2 MG/1 ML VIAL ONE (10:09)
[2018-01-10] MEDS ORDERED: HYDROCODONE/APAP 5/325 TAB PO PRN (10:58)
--- NOTE | 2018-01-10 10:58 | POSTOPPROG ---
Post Op Note Date of Operation: 01/10/18 Surgeon: Ethan Dudley [employer] Officer: Mary Martino MD Anesthesiologist: Chinyere Caba Anesthesia: GET(General Endotracheal) Pre-op Diagnosis: hyperparathyroidism Post-op Diagnosis: same Procedure: 3 gland parathyroidectomy (R lower, left upper/lower) Findings: initial pth 129 final 16.5 Inf/Abcess present in the surg proc area at time of surgery?: No EBL: Minimal Specimen(s): Multiple neck biopsies, L upper/lower and R lower parathyroidectomy
[2018-01-10] MEDS ORDERED: IBUPROFEN 600 MG TAB PO PRN (11:00)
--- NOTE | 2018-01-10 12:23 | GOP ---
[f rep st] OPERATIVE REPORT DATE OF OPERATION: SURGEON: Ethan Dudley MD SUPER[employer] ADJUSTMENT: Jaron Martino M.D. ANESTHESIA: General endotracheal anesthesia is used. ANESTHESIOLOGIST: Dr. Caba. PREOPERATIVE DIAGNOSIS: POSTOPERATIVE DIAGNOSIS: PROCEDURE PERFORMED: A 3-1/2 gland parathyroidectomy. FINDINGS: The initial parathyroid level of 130 is down to 16.5 at the end of the procedure. SPECIMENS: Seven specimens that are obtained. Primary specimens are left upper, left lower and righ t lower parathyroid glands, and a biopsy of the right upper parathyroid. INDICATIONS: This is a 67-year-old patient who has had a history of rib fractures and hyperparathyro idism, who presents today with a PTH level of 129, elevated calcium of 10.5 at last check. The patie nt has had some other psychosocial issues attributed to parathyroid disease, and she is here for elec tive repair. Preop sestamibi scan shows a left lower lobe adenoma. DESCRIPTION OF PROCEDURE: The patient was brought to the operating room. After induction of endotra cheal anesthesia in a supine position, her neck was prepped with chlorhexidine and draped sterilely. The patient's neck was extended for optimal view, and local anesthetic was then infused in skin and subcutaneous tissues after time-out was performed according to the institutional standards. The area is approached through a transverse incision, which was deepened with electrocautery. The platysma w as divided, and the strap muscle identified and divided in the midline. The thyroid gland was expose d on the left and the right by elevating the strap muscles and using careful dissection. The recurre nt laryngeal nerve was identified first on the left and then on the right; and dissection of the para thyroid glands inferiorly and superiorly demonstrates a parathyroid adenoma in the mid part of the ne ck and on the inferior aspect of the thyroid superiorly. Several biopsies were taken of the lower ne ck, including lymph node initially and the parathyroid, the left upper neck biopsy. The inferior and superior glands are then identified, completely excised and passed off as specimen. A hypercellular gland is noted of the left upper specimen. However, there was not adequate drop in the initial para thyroid. Lab values of 98 were seen. Therefore, the right side was explored as well. A right infer ior parathyroid adenoma was identified. Biopsy taken, confirmed to be parathyroid; and this was take n as a specimen after the superior gland was identified and biopsied. The patient had a drop of her parathyroid level to 16.5; and after finding this, the neck was closed after hemostasis, using 3-0 Vi cryl to reapproximate the strap muscles, the platysma, and Monocryl for the skin. Dermabond was appl ied. The patient was awakened, extubated, and taken to the recovery room in stable condition. No im mediate complications. /[id number]/MODL
--- NOTE | 2018-01-10 17:36 | POSTANESTH ---
Post Anesthetic Evaluation Cardiovascular Status: Normal, Stable Respiratory Status: Normal, Stable (with mild sore throat) Level of Consciousness/Mental Status: Can Participate in Eval Pain Control: Adequate, Prn Tx Ordered Nausea/Vomiting Control: Adequate, Prn Tx Ordered Complications Possibly Related to Anesthesia: None Noted
[2018-01-10] MEDS ORDERED: DIAZEPAM 2 MG TAB PO PRN (21:03)
--- NOTE | 2018-01-10 21:06 | SOAPPROG ---
PAUL Progress Note Assessment/Plan: Assessment/Plan: 67-year-old woman admitted for observation post 3 and half gland parathyroidectomy for hyperparathyroidism. The patient is doing well. Complains of sore throat. Post procedure PTH 16.5 Regular rate and rhythm Clear to auscultation Incision clean dry mild bruising Doing well no signs of hypocalcemia Calcium in the morning. Start Tums oral Calcitrol later today 01/10/18 21:04 Objective: Vital Signs Temp Pulse Resp BP Pulse Ox 37.2 C 78 16 97/65 L 94 01/10/18 20:00 01/10/18 20:00 01/10/18 20:00 01/10/18 21:01 01/10/18 20:00 01/09/18 01/10/18 01/11/18 05:59 05:59 05:59 Intake Total 1350 Output Total 200 Balance 1150 ICD10 Worksheet Patient Problems: Problems Problem Status Onset Acute blood loss anemia Acute Mitral valve regurgitation Acute Near syncope Acute S/P mitral valve replacement with bioprosthetic valve Acute
[2018-01-10] MEDS: CALCIUM CARBONATE 500 MG CHEWABLE TAB PO SCH (21:34)
[2018-01-11 07:29] VITALS: BP 114/77
[2018-01-11] MEDS ORDERED: PANTOPRAZOLE SODIUM 40 MG TAB PO SCH (09:00)
[2018-01-11] MEDS ORDERED: buPROPion XL 150 MG TAB PO SCH (09:00)
[2018-01-11] MEDS: CALCIUM CARBONATE 500 MG CHEWABLE TAB PO SCH (09:38)
== END 2018-01-11 10:42 | disposition home or self-care (01) ==
LOC: FSGY 05:42 → F3E 11:31
PROVIDERS: ADMIT Surgery; ATTEND Surgery
PROC: 0GBR0ZZ Excision of Parathyroid Gland, Open Approach (ICD-10-PCS; principal; 2018-01-10 07:15)
DX: E21.0 Primary hyperparathyroidism (principal); E04.1 Nontoxic single thyroid nodule
CPT/HCPCS: 60500; 88305; 88331; J0690; J1100; J2250; J2405; J2704; J2710; J2780; J3010

== ENCOUNTER → 2018-03-14 | Outpatient (CLI) | payer OTHER | LOC: BHFA 13:15 | PROVIDERS: ATTEND Internal Medicine Cardiovascular Disease | DX: Z95.2 Presence of prosthetic heart valve (principal); Z95.0 Presence of cardiac pacemaker ==

== ENCOUNTER → 2018-10-10 | Outpatient (CLI) | payer OTHER | LOC: CIMAGING 11:11 | PROVIDERS: ATTEND Family Medicine | DX: Z12.31 Encounter for screening mammogram for malignant neoplasm of breast (principal) ==